=== PATIENT | male | born 1960 | race Caucasian/White ===

== ENCOUNTER 2022-02-15 12:03 | Inpatient (IN) | payer OTHER ==
[~2022-02-15] VITALS: Ht 187.9 cm; Wt 100.4 kg
[~2022-02-15 12:03] MED LIST: ALPR.5T PO; ALPR1T PO; CEPH-38 PO; FLAGYL; METR375C PO; OXYC-12 PO; ZLP10T PO; [UNRECOGNIZED DRUG - CODE] IV; [UNRECOGNIZED DRUG - CODE] IV
[2022-02-15] MEDS ORDERED: fentaNYL INJ 100 MCG/2 ML AMP IVP PRN (13:15)
[2022-02-15 13:32] VITALS: BP 123/77
[2022-02-15] MEDS: LACTATED RINGERS 1,000 ML IV SCH ×2 (14:02→21:36)
[2022-02-15 15:26] VITALS: BP 119/78
[2022-02-15] MEDS: ONDANSETRON 4 MG/2 ML (SDV) Z0FRAN IVP PRN ×2 (15:30→21:39)
[2022-02-15] MEDS ORDERED: LIDOCAINE/EPI 1%-1:100,000 (XYLOCAINE) 10 ML ONE (16:54)
[2022-02-15] MEDS ORDERED: LORazepam INJ 2 MG/ML (ATIVAN) VIAL ONE (16:55)
[2022-02-15] MEDS ORDERED: LIDOCAINE/EPI 1%-1:100,000 (XYLOCAINE) 20ML INJ ONE (17:00)
[2022-02-15] MEDS ORDERED: fentaNYL INJ 100 MCG/2 ML AMP IVP ONE (17:00)
[2022-02-15] MEDS ORDERED: LORazepam INJ 2 MG/ML (ATIVAN) VIAL IVP ONE (17:00)
[2022-02-15 17:15] VITALS: BP 134/90
[2022-02-15] MEDS ORDERED: LORazepam INJ 2 MG/ML (ATIVAN) VIAL IVP PRN (17:45)
[2022-02-15] MEDS ORDERED: ACETAMINOPHEN 325 MG TABLET PO PRN (18:00)
[2022-02-15] MEDS: fentaNYL INJ 100 MCG/2 ML AMP IVP PRN ×3 (18:13→23:27)
--- NOTE | 2022-02-15 18:23 | HISTORY AND PHYSICAL ---
DATE OF SERVICE: ATTENDING PRIMARY CARE PHYSICIAN: Dr. Richa Delcid. HISTORY OF PRESENT ILLNESS: The patient is a 61-year-old male who presented to [facility] Emergency Department on 02/11/2022 for abdominal pain as well as nausea and vomiting. He had a CT scan performed, which did show gallbladder wall thickening as well as multiple gallstones consistent with acute calculous cholecystitis. On 02/12/2022, he underwent a laparoscopic cholecystectomy. There was a significant amount of inflammation identified as well as a mesenteric and omental fat creeping along the area of the gallbladder and hepatic fossa. He was kept overnight and the following day, he was able to tolerate liquids, have adequate pain control with oral pain medication and was ambulating well and was discharged home. He presented today with mild abdominal distention as well as a more superficial abdominal pain in the mid abdominal region. He states that his end ileostomy is working well and was otherwise tolerating a regular diet. He also did not report any fever nor chills at home. He underwent workup at [facility]. A CT scan was performed, which did show some fluid within the hepatic fossa as well as gallbladder fossa 5.1 x 2.3 cm in size. There was also some subcutaneous air along the abdominal wall just right of midline along the mid portion of the abdomen. It was decided to transfer the patient to [facility] by direct admission due to the need for a HIDA scan. PAST MEDICAL HISTORY: History of Crohn's disease, gastroesophageal reflux disease. PAST SURGICAL HISTORY: Total colectomy and end ileostomy 2013 in [place]. Laparoscopic cholecystectomy 02/12/2022. ALLERGIES: PENICILLIN CAUSES SOME NAUSEA. MEDICATIONS: Protonix 40 mg daily, dicyclomine 20 mg q.i.d. p.r.n., amitriptyline 25 mg daily, hydrocodone p.r.n., alprazolam 0.25 mg t.i.d. p.r.n., acetaminophen 325 mg q.4 hours p.r.n. VITAL SIGNS: Temperature 37.1, blood pressure 134/90, pulse 104, respirations 20, pulse ox 95% on room air. REVIEW OF SYSTEMS: A well-nourished male currently in no acute distress. He is not experiencing any shortness of breath or difficulty breathing. No chest pain, palpitations, diaphoresis. He states some mild abdominal distention; however, there was also developed pain along the anterior abdominal wall as well as noticed redness. He reports that his ileostomy is functioning regularly. He is also tolerating a diet. No fever or chills, no recent inadvertent weight loss. All other review of systems negative. PHYSICAL EXAMINATION: CHEST: Clear. Good breath sounds bilaterally. HEART: Regular, no murmurs. EXTREMITIES: No lower extremity edema, negative Homans sign. HEENT: No scleral icterus. NECK: No cervical lymphadenopathy. ABDOMEN: Soft, slightly distended. There is redness in the mid abdominal region, which is encompassing the 10 mm supraumbilical port with some redness and erythema and some fluctuance consistent with an abscess. SKIN: Warm, dry. ASSESSMENT AND PLAN: A 61-year-old male with abdominal wall abscess, which we will proceed with incision and drainage at the bedside and send the drainage for culture and sensitivity to tailor our antibiotic regimen. He also has fluid in the peritoneal cavity as well as darker coloration of his urine, which may indicate a bile leak at the cystic duct stump. He is scheduled for a HIDA scan tomorrow and if the leak is identified, we will then refer him to gastroenterology for an ERCP as well as stent placement. We will also start and continue with a broad-spectrum antibiotic with Zosyn 4.5 grams every 8 hours. We will also proceed with adequate pain control and DVT prophylaxis with calf SCDs and early ambulation. Job ID: [id number] DocumentID: [id number] Dictated Date: 02/15/2022 17:57:18 Plate Setter Date: 02/15/2022 18:23:13 Dictated By: DEONNA CHERY MD
[2022-02-15 19:24] VITALS: BP 129/71
[2022-02-15] MEDS ORDERED: fentaNYL INJ 100 MCG/2 ML AMP ONE (19:40)
--- NOTE | 2022-02-15 20:11 | OPERATIVE REPORT ---
DATE OF SERVICE: 02/15/2022 ATTENDING PRIMARY CARE PHYSICIAN: Dr. Richa Delcid. PREOPERATIVE DIAGNOSIS: Abdominal wall redness, erythema and abscess. POSTOPERATIVE DIAGNOSIS: Abdominal wall redness, erythema and abscess. PROCEDURE: Incision and drainage of abdominal wall abscess, which was approximately 6 x 3 cm in size. SURGEON: Deonna Chery MD ANESTHESIA: Local. ESTIMATED BLOOD LOSS: Minimal. DISPOSITION: The patient tolerated the procedure well. INDICATIONS: The patient is a 61-year-old male who had an acute cholecystitis and was admitted to [facility] on 02/11/2002. Following day, he underwent a laparoscopic cholecystectomy. After the following morning, he was doing well and had adequate pain control, was tolerating a regular diet and was sent home. He presented to [facility] today with abdominal wall pain as well as redness and swelling. He also noticed darkening of his urine. The patient was transferred to [facility] for the need for a HIDA scan. Also upon examination, he was found to have a mid abdominal redness, erythema as well as fluctuance consistent with an abscess. DESCRIPTION OF PROCEDURE: The abdomen was prepped and draped in standard surgical fashion. A 1% lidocaine with epinephrine was used to anesthetize the overlying skin to the abscess. A horizontal skin incision was then made using a 10-blade. Subcutaneous tissue was then dissected using the 10- blade as well. There was some necrotic subcutaneous fat, which was debrided using a sharp dissecting scissors. The wound cavity was then copiously irrigated with sterile saline and then packed wet to dry. The patient tolerated the procedure well. We will instruct wet to dry dressings on a b.i.d. basis. The fluid was also sent for culture and sensitivity to fine tune our antibiotic regimen. However, we will proceed with a broad-spectrum antibiotic with Zosyn 4.5 grams every 8 hours. We will also await his HIDA scan tomorrow. Job ID: [id number] DocumentID: [id number] Dictated Date: 02/15/2022 18:02:22 Electronics Computer Mechanic Date: 02/15/2022 20:10:39 Dictated By: DEONNA CHERY MD
[2022-02-15 20:52] LABS: BASOPHILS # (AUTO) 0.1 10^3/uL (0.0-0.1); BASOPHILS % (AUTO) 0 % (0-10); EOSINOPHILS # (AUTO) 0.3 10^3/uL (0.0-0.3); EOSINOPHILS % (AUTO) 2 % (0-10); HEMATOCRIT 39 % (40-54); HEMOGLOBIN 13.6 g/dL (13.3-17.7); LYMPHOCYTES # (AUTO) 1.1 10^3/uL (1.0-4.0); LYMPHOCYTES % (AUTO) 10 % (12-44); MEAN CORPUSCULAR HEMOGLOBIN 31 pg (25-34); MEAN CORPUSCULAR HGB CONC 35 g/dL (32-36); MEAN CORPUSCULAR VOLUME 90 fL (80-99); MEAN PLATELET VOLUME 10.7 fL (9.0-12.2); MONOCYTES # (AUTO) 0.9 10^3/uL (0.0-1.0); MONOCYTES % (AUTO) 8 % (0-12); NEUTROPHILS # (AUTO) 9.3 10^3/uL (1.8-7.8); NEUTROPHILS % (AUTO) 79 % (42-75); PLATELET COUNT 214 10^3/uL (130-400); WHITE BLOOD COUNT 11.8 10^3/uL (4.3-11.0)
[2022-02-15] MEDS ORDERED: PIPERACILLIN SODIUM/TAZOBACTAM 4.5 GM in NS (IVPB) 100 ML IV ONE (21:30)
[2022-02-16 00:24] VITALS: BP 119/80
[2022-02-16] MEDS: PIPERACILLIN SODIUM/TAZOBACTAM 4.5 GM in NS (IVPB) 100 ML IV SCH ×3 (03:28→17:40)
[2022-02-16 04:15] VITALS: BP 144/80
[2022-02-16] MEDS: fentaNYL INJ 100 MCG/2 ML AMP IVP PRN ×8 (05:20→23:09)
[2022-02-16 05:42] LABS: BASOPHILS # (AUTO) 0.1 10^3/uL (0.0-0.1); BASOPHILS % (AUTO) 1 % (0-10); EOSINOPHILS # (AUTO) 0.4 10^3/uL (0.0-0.3); EOSINOPHILS % (AUTO) 3 % (0-10); HEMATOCRIT 43 % (40-54); HEMOGLOBIN 15.1 g/dL (13.3-17.7); LYMPHOCYTES # (AUTO) 1.1 10^3/uL (1.0-4.0); LYMPHOCYTES % (AUTO) 8 % (12-44); MEAN CORPUSCULAR HEMOGLOBIN 32 pg (25-34); MEAN CORPUSCULAR HGB CONC 35 g/dL (32-36); MEAN CORPUSCULAR VOLUME 90 fL (80-99); MEAN PLATELET VOLUME 10.6 fL (9.0-12.2); MONOCYTES % (AUTO) 8 % (0-12); NEUTROPHILS # (AUTO) 10.2 10^3/uL (1.8-7.8); NEUTROPHILS % (AUTO) 79 % (42-75); PLATELET COUNT 240 10^3/uL (130-400); WHITE BLOOD COUNT 12.8 10^3/uL (4.3-11.0)
[2022-02-16] MEDS: LACTATED RINGERS 1,000 ML IV SCH ×3 (05:54→22:07)
[2022-02-16 05:58] LABS: ALBUMIN 3.1 GM/DL (3.2-4.5); POTASSIUM 3.8 MMOL/L (3.6-5.0)
[2022-02-16 06:00] LABS: TOTAL PROTEIN 6.2 GM/DL (6.4-8.2)
[2022-02-16 06:04] LABS: CREATININE SERUM 0.79 MG/DL (0.60-1.30)
--- NOTE | 2022-02-16 06:16 | Consultation ---
HPI History of Present Illness: HPI/Chief Complaint CC: Abdominal pain HPI: This is a 61 yr WM who was admitted to [facility] on 02/11/22. Pt underwent a cholecystectomy. He was doing well. Suffered abdominal pain again. He was found to have an abdominal wall abscess. He was admitted and placed on Zosyn antibiotics. HIDA scan showed no biliary leak but Dr. Chery will assess. He does see a colorectal surgeon and web development consultant. Source: patient, family Exam Limitations: no limitations Date Seen 02/16/22 Attending Physician Richa Delcid MD PCP Admitting Physician: Purvi Chery MD Attending Physician: Purvi Chery MD Referring Physician Date of Admission February 15, 2022 at 13:05 Home Medications & Allergies Home Medications Reviewed patient Home Medication Reconciliation performed by pharmacy medication reconciliations planetarium technician and/or nursing. Patients Allergies have been reviewed. Allergies Allergies Coded Allergies No Known Drug Allergies (Unverified02/15/22) Past Ghsgvlc-Cbjrdt-Pxoloo Hx Past Med/Social Hx: Reviewed Nursing Past Med/Soc Hx, Reviewed and Corrections made Patient Social History Marrital Status: Employed/Student: employed Alcohol Use: Denies Use Smoking Status: Never a Smoker Past Medical History Surgeries: Abdominal Gastrointestinal: Diverticulosis Review of Systems Constitutional: see HPI, malaise, weakness EENTM: no symptoms reported Respiratory: no symptoms reported Cardiovascular: no symptoms reported Gastrointestinal: abdominal pain, loss of appetite, nausea, vomiting Genitourinary: no symptoms reported Musculoskeletal: no symptoms reported Skin: no symptoms reported Psychiatric/Neurological: No Symptoms Reported All Other Systems Reviewed Negative Unless Noted: Yes Physical Exam Physical Exam Vital Signs Vital Signs - First Documented 02/15/22 13:32 Temp 36.9 Pulse 94 Resp 18 B/P (MAP) 123/77 (92) Pulse Ox 95 O2 Delivery Room Air Capillary Refill : Height, Weight, BMI Height: '" Weight: lbs. oz. kg; 28.04 BMI Method:Stated General Appearance: No Apparent Distress, WD/WN Eyes: Bilateral Eye Normal Inspection, Bilateral Eye PERRL HEENT: PERRL/EOMI, Normal ENT Inspection, Pharynx Normal Neck: Full Range of Motion, Normal Inspection, Non Tender, Supple, Carotid Bruit Respiratory: Chest Non Tender, Lungs Clear, Normal Breath Sounds, No Accessory Muscle Use, No Respiratory Distress Cardiovascular: Regular Rate, Rhythm, No Edema, No Gallop, No JVD, No Murmur, Normal Peripheral Pulses Gastrointestinal: No Organomegaly, No Pulsatile Mass, Abnormal Bowel Sounds, Distended, Tenderness Back: Normal Inspection, No CVA Tenderness, No Vertebral Tenderness Extremity: Normal Capillary Refill, Normal Inspection, Normal Range of Motion, Non Tender, No Calf Tenderness, No Pedal Edema Neurologic/Psychiatric: Alert, Oriented x3, No Motor/Sensory Deficits, Normal Mood/Affect Skin: Normal Color, Warm/Dry Lymphatic: No Adenopathy Results Results/Procedures Labs Laboratory Tests 02/15/22 20:45 02/16/22 05:30 Patient resulted labs reviewed. Assessment/Plan Assessment and Plan Assess & Plan/Chief Complaint Assessment: Abdominal pain Postop ileus Cholecystectomy 02/11/2022 at [facility] by Dr. CHERY Abdominal wall abscess Crohn's disease Diverticulosis Plan: Broad-spectrum antibiotics HIDA scan Pain meds Supportive care Diagnosis/Problems Diagnosis/Problems (1) Abdominal pain PETRONA ALCOCER DO February 16, 2022 06:16
[2022-02-16] MEDS ORDERED: DICY20TA PO (08:44)
[2022-02-16] MEDS ORDERED: HYDR-3817 PO (08:44)
[2022-02-16] MEDS ORDERED: PANT40TA52 PO (08:44)
[2022-02-16] MEDS ORDERED: AMIT25TA9 PO (08:45)
[2022-02-16] MEDS ORDERED: ALPR0.254 PO (08:45)
[2022-02-16 08:47] VITALS: BP 141/79
[2022-02-16] MEDS ORDERED: IBUP-2473 PO (08:47)
[2022-02-16] MEDS ORDERED: PEDI300T11 PO (08:48)
[2022-02-16] MEDS ORDERED: PANTOPRAZOLE 40 MG (PROTONIX) VIAL IV SCH (09:00)
--- NOTE | 2022-02-16 09:01 | Diagnostic Imaging Report ---
Comparison: 01/25/2013 Reason for exam: Cholecystectomy on 02/12/2022. Abdominal pain. Fluid collection. Evaluate for leak. Procedure: The patient was administered 5.34 millicuries of technetium 99m mebrofenin. A nuclear medicine hepatobiliary scan was performed. Findings: There is prompt uptake and excretion of radiotracer by the liver. Activity is visible in the small bowel by 25 minutes. The gallbladder is surgically absent. No abnormal accumulation of radiotracer is seen to suggest bile leak. Impression: 1. No nuclear medicine evidence of bile leak or biloma. Recommend continued follow-up as indicated. Dictated by: Dictated on workstation # [id number]
[2022-02-16 12:40] VITALS: BP 116/71
[2022-02-16 16:00] VITALS: BP 133/82
[2022-02-16] MEDS: HYDROcodone/APAP 7.5 MG/325 MG (LORTAB, LORCET PLUS) TABLET PO PRN (18:50)
[2022-02-16 20:00] VITALS: BP 121/78
[2022-02-17] VITALS: BP 130/64
[2022-02-17] MEDS: HYDROcodone/APAP 7.5 MG/325 MG (LORTAB, LORCET PLUS) TABLET PO PRN ×4 (02:09→19:44)
[2022-02-17] MEDS: LACTATED RINGERS 1,000 ML IV SCH (02:10)
[2022-02-17] MEDS: PIPERACILLIN SODIUM/TAZOBACTAM 4.5 GM in NS (IVPB) 100 ML IV SCH ×3 (02:11→16:52)
[2022-02-17 04:00] VITALS: BP 130/87
[2022-02-17] MEDS: fentaNYL INJ 100 MCG/2 ML AMP IVP PRN ×4 (04:32→19:44)
[2022-02-17] MEDS ORDERED: IBUPROFEN TABLET 200 MG TAB PO PRN (05:45)
--- NOTE | 2022-02-17 06:33 | Progress Note ---
Subjective Date Seen by a Provider: Feb 17, 2022 Time Seen by a Provider: 10:00 Subjective/Events-last exam Pt is doing about the same Reporting that he is having stool come from the area that the gallbladder came out of laparoscopically I did update Dr. Chery Antibiotics maintained Review of Systems Gastrointestinal: Abdominal Pain Objective Exam Last Set of Vital Signs Vital Signs Date Time Temp Pulse Resp B/P (MAP) Pulse Ox O2 Delivery O2 Flow Rate FiO2 02/17/22 04:00 37.4 85 18 130/87 (101) 95 Room Air Capillary Refill : I&O Intake and Output 02/17/22 00:00 Intake Total 1690 ml Output Total 575 ml Balance 1115 ml Intake Oral 1590 ml IV Total 100 ml Output Urine Total 525 ml Stool Total 50 ml # Voids 4 General: Alert, Oriented X3, Cooperative, No Acute Distress Lungs: Clear to Auscultation, Normal Air Movement Heart: Regular Rate, Normal S1, Normal S2, No Murmurs Neuro: Normal Gait, Normal Speech, Strength at 5/5 X4 Ext, Normal Tone Results Lab Microbiology 02/15/22 Gram Stain, Resulted Pending 02/15/22 Wound Culture - Preliminary, Resulted YEAST Gram Positive Cocci Assessment/Plan Assessment/Plan Assess & Plan/Chief Complaint Assessment: Abdominal pain Postop ileus Cholecystectomy 02/11/2022 at [facility] by Dr. CHERY Abdominal wall abscess Crohn's disease Diverticulosis Fistula formation? Plan: Broad-spectrum antibiotics HIDA scan Pain meds Supportive care 02/17/22: Supportive care IV abx Monitor closely Diagnosis/Problems Diagnosis/Problems (1) Abdominal pain PETRONA ALCOCER DO Feb 17, 2022 06:33
[2022-02-17 07:41] VITALS: BP 121/76
[2022-02-17] MEDS: ALPRAZolam 0.25 MG (XANAX) TAB PO PRN (08:12)
[2022-02-17] MEDS: DICYCLOMINE 10 MG (BENTYL) CAP PO SCH ×3 (08:13→19:47)
[2022-02-17] MEDS: MULTIVIT W/MINERALS TAB (THERAGRAN M) PO SCH (08:13)
[2022-02-17] MEDS ORDERED: FLUCONAZOLE 200 MG/100 ML 100 ML IV NR (09:30)
[2022-02-17 11:06] VITALS: BP 118/75
--- NOTE | 2022-02-17 12:05 | Progress Note ---
Subjective Date Seen by a Provider: February 16, 2022 Time Seen by a Provider: 12:00 Subjective/Events-last exam this note reflects patient visit on 02/16. patient doing well. no f ever/chills. tolerating clears. mild drainage per open wound. Objective Exam Vital Signs Date Time Temp Pulse Resp B/P (MAP) Pulse Ox O2 Delivery O2 Flow Rate FiO2 02/17/22 11:06 36.3 87 18 118/75 (89) 97 Room Air 02/17/22 08:00 Room Air 02/17/22 07:41 36.4 83 18 121/76 (91) 96 Room Air 02/17/22 04:00 37.4 85 18 130/87 (101) 95 Room Air 02/17/22 00:00 37.1 81 18 130/64 (86) 96 Room Air 02/16/22 20:00 Room Air 02/16/22 20:00 37.0 86 20 121/78 (92) 94 Room Air 02/16/22 16:00 37.6 93 20 133/82 (99) 91 Room Air 02/16/22 12:40 37.3 94 18 116/71 (86) 91 Room Air I & O 02/17/22 07:00 Intake Total 3190 ml Output Total 200 ml Balance 2990 ml Capillary Refill : General Appearance: No Apparent Distress HEENT: PERRL/EOMI Neck: Full Range of Motion Respiratory: Chest Non Tender, Lungs Clear, Normal Breath Sounds Cardiovascular: Regular Rate, Rhythm Gastrointestinal: soft, tenderness, other (open wound dressed/dry) Extremity: Normal Capillary Refill Neurologic/Psychiatric: Alert, Oriented x3 Skin: Normal Color Lymphatic: No Adenopathy Results Lab Microbiology 02/15/22 Gram Stain - Final, Resulted 02/15/22 Wound Culture - Preliminary, Resulted YEAST Enterococcus gallinarum Assessment/Plan Assessment/Plan Assess & Plan/Chief Complaint s/p lap mary for acute calculous cholecystitis. HIDA normal with no bile leak. open wound with granulation tissue starting to grow. DEONNA CHERY MD Feb 17, 2022 12:05
[2022-02-17 15:33] VITALS: BP 151/81
--- NOTE | 2022-02-17 15:44 | Progress Note ---
Subjective Date Seen by a Provider: Feb 17, 2022 Time Seen by a Provider: 15:00 Subjective/Events-last exam doing well clinically. tolerating diet. having normal ostomy output. currently minimal wound output. no fever/chills. Objective Exam Vital Signs Date Time Temp Pulse Resp B/P (MAP) Pulse Ox O2 Delivery O2 Flow Rate FiO2 02/17/22 15:33 37.2 92 20 151/81 (104) 97 Room Air 02/17/22 11:06 36.3 87 18 118/75 (89) 97 Room Air 02/17/22 08:00 Room Air 02/17/22 07:41 36.4 83 18 121/76 (91) 96 Room Air 02/17/22 04:00 37.4 85 18 130/87 (101) 95 Room Air 02/17/22 00:00 37.1 81 18 130/64 (86) 96 Room Air 02/16/22 20:00 Room Air 02/16/22 20:00 37.0 86 20 121/78 (92) 94 Room Air 02/16/22 16:00 37.6 93 20 133/82 (99) 91 Room Air I & O 02/17/22 07:00 Intake Total 3190 ml Output Total 200 ml Balance 2990 ml Capillary Refill : General Appearance: No Apparent Distress HEENT: PERRL/EOMI Neck: Full Range of Motion Respiratory: Chest Non Tender, Lungs Clear, Normal Breath Sounds Cardiovascular: Regular Rate, Rhythm Gastrointestinal: normal bowel sounds, soft, tenderness, other (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 HIDA normal with no bile leak. 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 no surgery for now. will recommend low residue diet and continued abx and antifungals. if large fistula out put will place ostomy bag. will get CT abd/pelvis tomorrow with PO contrast. DEONNA CHERY MD Feb 17, 2022 15:44
[2022-02-17 16:19] LABS: BASOPHILS # (AUTO) 0.1 10^3/uL (0.0-0.1); BASOPHILS % (AUTO) 1 % (0-10); EOSINOPHILS # (AUTO) 0.3 10^3/uL (0.0-0.3); EOSINOPHILS % (AUTO) 3 % (0-10); HEMATOCRIT 41 % (40-54); HEMOGLOBIN 14.1 g/dL (13.3-17.7); LYMPHOCYTES # (AUTO) 1.6 10^3/uL (1.0-4.0); LYMPHOCYTES % (AUTO) 13 % (12-44); MEAN CORPUSCULAR HEMOGLOBIN 31 pg (25-34); MEAN CORPUSCULAR HGB CONC 34 g/dL (32-36); MEAN CORPUSCULAR VOLUME 90 fL (80-99); MEAN PLATELET VOLUME 9.9 fL (9.0-12.2); MONOCYTES # (AUTO) 1.1 10^3/uL (0.0-1.0); MONOCYTES % (AUTO) 10 % (0-12); NEUTROPHILS # (AUTO) 8.5 10^3/uL (1.8-7.8); NEUTROPHILS % (AUTO) 72 % (42-75); PLATELET COUNT 258 10^3/uL (130-400); WHITE BLOOD COUNT 11.9 10^3/uL (4.3-11.0)
[2022-02-17 16:31] LABS: ALBUMIN 3.2 GM/DL (3.2-4.5)
[2022-02-17 16:32] LABS: POTASSIUM 3.6 MMOL/L (3.6-5.0)
[2022-02-17 16:33] LABS: CALCIUM 8.8 MG/DL (8.5-10.1)
[2022-02-17 16:34] LABS: TOTAL PROTEIN 6.3 GM/DL (6.4-8.2)
[2022-02-17 16:36] LABS: BILIRUBIN,TOTAL 0.8 MG/DL (0.1-1.0)
[2022-02-17 16:38] LABS: CREATININE SERUM 0.72 MG/DL (0.60-1.30)
[2022-02-17] MEDS: PANTOPRAZOLE 40 MG (PROTONIX) TAB PO SCH (19:44)
[2022-02-17] MEDS: AMITRIPTYLINE 25 MG (ELAVIL) TAB PO SCH (19:47)
[2022-02-17 20:05] VITALS: BP 118/72
[2022-02-17] MEDS ORDERED: PANTOPRAZOLE 40 MG (PROTONIX) TAB PO SCH (21:00)
[2022-02-17] MEDS ORDERED: OCTREOTIDE (FOR SQ USE) 100 MCG/ML VIAL (SandoSTATIN) SC SCH (22:00)
[2022-02-18] VITALS (7 sets, daily range): BP systolic 128–140; BP diastolic 73–88
[2022-02-18] MEDS: PIPERACILLIN SODIUM/TAZOBACTAM 4.5 GM in NS (IVPB) 100 ML IV SCH ×3 (02:45→17:32)
[2022-02-18] MEDS: HYDROcodone/APAP 7.5 MG/325 MG (LORTAB, LORCET PLUS) TABLET PO PRN ×3 (03:46→22:24)
[2022-02-18] MEDS: MULTIVIT W/MINERALS TAB (THERAGRAN M) PO SCH (06:05)
[2022-02-18] MEDS: fentaNYL INJ 100 MCG/2 ML AMP IVP PRN ×5 (06:09→20:17)
--- NOTE | 2022-02-18 06:31 | Progress Note ---
Subjective Date Seen by a Provider: Feb 18, 2022 Time Seen by a Provider: 11:00 Subjective/Events-last exam Pt is doing about the same Fistula is draining everything that he is eating CT scan reviewed Having increased pain Very difficult situation No evidence of sepsis Wound care will be consulted Review of Systems General: Fatigue, Malaise Gastrointestinal: Abdominal Pain Objective Exam Last Set of Vital Signs Vital Signs Date Time Temp Pulse Resp B/P (MAP) Pulse Ox O2 Delivery O2 Flow Rate FiO2 02/18/22 03:42 38.7 94 18 132/80 (97) 93 Room Air Capillary Refill : I&O Intake and Output 02/18/22 00:00 Intake Total 3845 ml Output Total 675 ml Balance 3170 ml Intake Oral 1545 ml IV Total 2300 ml Output Urine Total 525 ml Stool Total 150 ml # Voids 3 General: Alert, Oriented X3, Cooperative, No Acute Distress Lungs: Clear to Auscultation, Normal Air Movement Heart: Regular Rate, Normal S1, Normal S2, No Murmurs Psych/Mental Status: Mental Status NL, Mood NL Results Lab Laboratory Tests 02/17/22 16:05: White Blood Count 11.9H, Red Blood Count 4.56, Hemoglobin 14.1, Hematocrit 41, Mean Corpuscular Volume 90, Mean Corpuscular Hemoglobin 31, Mean Corpuscular Hemoglobin Concent 34, Red Cell Distribution Width 13.2, Platelet Count 258, Mean Platelet Volume 9.9, Immature Granulocyte % (Auto) 2, Neutrophils (%) (Auto) 72, Lymphocytes (%) (Auto) 13, Monocytes (%) (Auto) 10, Eosinophils (%) (Auto) 3, Basophils (%) (Auto) 1, Neutrophils # (Auto) 8.5H, Lymphocytes # (Auto) 1.6, Monocytes # (Auto) 1.1H, Eosinophils # (Auto) 0.3, Basophils # (Auto) 0.1, Immature Granulocyte # (Auto) 0.3H, Sodium Level 138, Potassium Level 3.6, Chloride Level 102, Carbon Dioxide Level 21, Anion Gap 15H, Blood Urea Nitrogen 12, Creatinine 0.72, Estimat Glomerular Filtration Rate 105, BUN/Creatinine Ratio 17, Glucose Level 94, Calcium Level 8.8, Corrected Calcium 9.4, Total Bilirubin 0.8, Aspartate Amino Transf (AST/SGOT) 24, Alanine Aminotransferase (ALT/SGPT) 31, Alkaline Phosphatase 71, Total Protein 6.3L, Albumin 3.2 Microbiology 02/15/22 Gram Stain - Final, Resulted 02/15/22 Wound Culture - Preliminary, Resulted YEAST Enterococcus gallinarum Assessment/Plan Assessment/Plan Assess & Plan/Chief Complaint Assessment: Abdominal pain Postop ileus Cholecystectomy 02/11/2022 at [facility] by Dr. CHERY Abdominal wall abscess Crohn's disease Diverticulosis Fistula formation? Plan: Broad-spectrum antibiotics HIDA scan Pain meds Supportive care 02/17/22: Supportive care IV abx Monitor closely 02/18/2022: Supportive care Wound care consult Antibiotics Diagnosis/Problems Diagnosis/Problems (1) Abdominal pain PETRONA ALCOCER DO Feb 18, 2022 06:31
[2022-02-18 07:44] LABS: BASOPHILS # (AUTO) 0.1 10^3/uL (0.0-0.1); BASOPHILS % (AUTO) 0 % (0-10); EOSINOPHILS # (AUTO) 0.3 10^3/uL (0.0-0.3); EOSINOPHILS % (AUTO) 2 % (0-10); HEMATOCRIT 38 % (40-54); HEMOGLOBIN 13.2 g/dL (13.3-17.7); LYMPHOCYTES # (AUTO) 1.4 10^3/uL (1.0-4.0); LYMPHOCYTES % (AUTO) 11 % (12-44); MEAN CORPUSCULAR HEMOGLOBIN 31 pg (25-34); MEAN CORPUSCULAR HGB CONC 35 g/dL (32-36); MEAN CORPUSCULAR VOLUME 90 fL (80-99); MEAN PLATELET VOLUME 9.9 fL (9.0-12.2); MONOCYTES # (AUTO) 1.4 10^3/uL (0.0-1.0); MONOCYTES % (AUTO) 11 % (0-12); NEUTROPHILS # (AUTO) 9.6 10^3/uL (1.8-7.8); NEUTROPHILS % (AUTO) 74 % (42-75); PLATELET COUNT 268 10^3/uL (130-400); WHITE BLOOD COUNT 12.9 10^3/uL (4.3-11.0)
--- NOTE | 2022-02-18 07:48 | Physician Query Clarification ---
PQ-Link Infection to Dev/Proc Admission/Discharge Admission Date: Feb 17, 2022 at 13:41 Discharge Date: Dr. Chery, The medical record reflects the following clinical scenario: History/Risk Factors: s/p lap cholecystectomy 02/12 Clinical Findings: abdominal wall abscess Treatment: I&D abdominal wall abscess 02/15 Question: Can you specify if the abdominal wall abscess is due to/associated with lap cholecystectomy? Please document a response in Progress Note or Discharge Summary. 1. Yes - abdominal wall abscess is due to/associated with lap cholecystectomy. 2. No - abdominal wall abscess is due to/associated with lap cholecystectomy . 3. Other, with explanation of the clinical findings. 4. Clinically undetermined, no explanation for the clinical findings. PHYSICIAN RESPONSE Specify if infection: Other, explain clinical findings Explanation of clincal finding due to crohns disease and small bowel enterocutaneous fistula formation. In responding to this query, please exercise your independent professional judgment. The purpose of this communication is to more accurately reflect the complexity of your patients condition. The fact that a question is asked does not imply that any particular answer is desired or expected. Thank you for your timely response to this clarification. Requestors name: Olivia THIS PHYSICIAN QUERY FORM IS A PERMANENT PART OF THE MEDICAL RECORD OLIVIA DENNY Feb 18, 2022 07:48 DEONNA CHERY MD Feb 18, 2022 11:13
[2022-02-18 07:53] LABS: ALBUMIN 3.1 GM/DL (3.2-4.5)
[2022-02-18 07:54] LABS: POTASSIUM 3.6 MMOL/L (3.6-5.0)
[2022-02-18 07:55] LABS: CALCIUM 8.8 MG/DL (8.5-10.1)
[2022-02-18 07:58] LABS: BILIRUBIN,TOTAL 0.9 MG/DL (0.1-1.0)
[2022-02-18 08:00] LABS: CREATININE SERUM 0.75 MG/DL (0.60-1.30)
[2022-02-18] MEDS: OCTREOTIDE (FOR SQ USE) 100 MCG/ML VIAL (SandoSTATIN) SC SCH ×4 (08:39→23:14)
[2022-02-18] MEDS: FLUCONAZOLE 100 MG/50 ML IVPB IV SCH (08:42)
--- NOTE | 2022-02-18 10:00 | Diagnostic Imaging Report ---
PROCEDURE: CT abdomen and pelvis without contrast. TECHNIQUE: Multiple contiguous axial images were obtained through the abdomen and pelvis without the use of intravenous contrast. Auto Exposure Controls were utilized during the CT exam to meet ALARA standards for radiation dose reduction. INDICATION: Possible small bowel fistula. Correlation is made with prior CT from 01/25/2013. FINDINGS: Lung bases demonstrate areas of bibasilar consolidation with air bronchograms suggestive of pneumonia. There is some minimal atelectasis or pneumonia in the lingula as well. Patient reportedly has had a recent cholecystectomy. There is some trace free air present likely from recent surgery. There are surgical clips in the gallbladder fossa. Minimal fluid in the gallbladder fossa is seen consistent with a small postoperative hematoma. No biliary ductal dilatation is seen. Patient does have oral contrast within the stomach and small bowel loops. There is a midline incision. There is a small gas and contrast collection in the anterior midline abdomen which does not appear to conform to a bowel loop. This is an probe close proximity to a small bowel loop slightly more inferiorly in the right paramidline. The collection measures 6.7 cm cephalocaudal by approximately 3.0 cm AP by 6.8 cm transverse. The collection is just deep to the anterior abdominal wall. Small amount of free fluid is present. There is a right lower quadrant ostomy. Some subcutaneous gas in the anterior abdominal wall as well. The liver, pancreas, spleen, adrenal glands and kidneys are unremarkable. Bladder is unremarkable. IMPRESSION: 1. Bilateral lower lobe parenchymal consolidation with air bronchogram suggestive of pneumonia. 2. Postoperative changes in the abdomen. There appears to be an abnormal gas and contrast collection in the anterior midline abdomen just deep to the anterior abdominal wall, likely arising from adjacent small bowel loop. No other abnormal collections are seen. There is pneumoperitoneum, presumably postoperative. Results were discussed with Dr. Harry prior to this dictation. Dictated by: Dictated on workstation # [id number]
[2022-02-18] MEDS: DICYCLOMINE 10 MG (BENTYL) CAP PO SCH ×3 (10:26→20:17)
[2022-02-18] MEDS: PANTOPRAZOLE 40 MG (PROTONIX) TAB PO SCH ×2 (10:38→20:16)
--- NOTE | 2022-02-18 14:22 | Progress Note ---
Subjective Date Seen by a Provider: Feb 18, 2022 Time Seen by a Provider: 14:00 Subjective/Events-last exam doing ok. 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 no intraabd abscess. likely has some level of active crohn's Objective Exam Vital Signs Date Time Temp Pulse Resp B/P (MAP) Pulse Ox O2 Delivery O2 Flow Rate FiO2 02/18/22 12:18 Room Air 0.00 02/18/22 11:34 37.1 83 17 130/81 (97) 95 Room Air 02/18/22 08:00 95 Room Air 02/18/22 07:36 36.6 81 18 128/81 (97) 95 Room Air 02/18/22 03:42 38.7 94 18 132/80 (97) 93 Room Air 02/18/22 00:55 37.1 98 18 134/84 (101) 94 Room Air 02/17/22 20:55 37.5 02/17/22 20:55 37.5 02/17/22 20:05 Room Air 02/17/22 20:05 37.5 86 19 118/72 (87) 94 Room Air 02/17/22 15:33 37.2 92 20 151/81 (104) 97 Room Air I & O 02/18/22 07:00 Intake Total 2695 ml Output Total 1300 ml Balance 1395 ml Capillary Refill : General Appearance: No Apparent Distress HEENT: PERRL/EOMI Neck: Full Range of Motion Respiratory: Chest Non Tender, Lungs Clear, Normal Breath Sounds Cardiovascular: Regular Rate, Rhythm Gastrointestinal: normal bowel sounds, soft, other (EC fistula, good granulation bed, no purulence.) Extremity: Normal Capillary Refill Neurologic/Psychiatric: Alert, Oriented x3 Skin: Normal Color Lymphatic: No Adenopathy Results Lab Laboratory Tests 02/17/22 16:05: White Blood Count 11.9H, Red Blood Count 4.56, Hemoglobin 14.1, Hematocrit 41, Mean Corpuscular Volume 90, Mean Corpuscular Hemoglobin 31, Mean Corpuscular Hemoglobin Concent 34, Red Cell Distribution Width 13.2, Platelet Count 258, Mean Platelet Volume 9.9, Immature Granulocyte % (Auto) 2, Neutrophils (%) (Auto) 72, Lymphocytes (%) (Auto) 13, Monocytes (%) (Auto) 10, Eosinophils (%) (Auto) 3, Basophils (%) (Auto) 1, Neutrophils # (Auto) 8.5H, Lymphocytes # (Auto) 1.6, Monocytes # (Auto) 1.1H, Eosinophils # (Auto) 0.3, Basophils # (Auto) 0.1, Immature Granulocyte # (Auto) 0.3H, Sodium Level 138, Potassium Level 3.6, Chloride Level 102, Carbon Dioxide Level 21, Anion Gap 15H, Blood Urea Nitrogen 12, Creatinine 0.72, Estimat Glomerular Filtration Rate 105, BUN/Creatinine Ratio 17, Glucose Level 94, Calcium Level 8.8, Corrected Calcium 9.4, Total Bilirubin 0.8, Aspartate Amino Transf (AST/SGOT) 24, Alanine Aminotransferase (ALT/SGPT) 31, Alkaline Phosphatase 71, Total Protein 6.3L, Albumin 3.2 02/18/22 07:36: White Blood Count 12.9H, Red Blood Count 4.23L, Hemoglobin 13.2L, Hematocrit 38L , Mean Corpuscular Volume 90, Mean Corpuscular Hemoglobin 31, Mean Corpuscular Hemoglobin Concent 35, Red Cell Distribution Width 13.2, Platelet Count 268, Mean Platelet Volume 9.9, Immature Granulocyte % (Auto) 2, Neutrophils (%) (Aut o) 74, Lymphocytes (%) (Auto) 11L, Monocytes (%) (Auto) 11, Eosinophils (%) (Auto) 2, Basophils (%) (Auto) 0, Neutrophils # (Auto) 9.6H, Lymphocytes # (Auto) 1.4, Monocytes # (Auto) 1.4H, Eosinophils # (Auto) 0.3, Basophils # (Auto) 0.1, Immature Granulocyte # (Auto) 0.3H, Sodium Level 138, Potassium Level 3.6, Chloride Level 102, Carbon Dioxide Level 22, Anion Gap 14, Blood Urea Nitrogen 8, Creatinine 0.75, Estimat Glomerular Filtration Rate 104, BUN/Creatinine Ratio 11, Glucose Level 104, Calcium Level 8.8, Corrected Calcium 9.5, Total Bilirubin 0.9, Aspartate Amino Transf (AST/SGOT) 19, Alanine Aminotransferase (ALT/SGPT) 26, Alkaline Phosphatase 76, Total Protein 6.0L, Albumin 3.1L Microbiology 02/15/22 Gram Stain - Final, Complete 02/15/22 Wound Culture - Final, Complete YEAST Enterococcus gallinarum Assessment/Plan Assessment/Plan Assess & Plan/Chief Complaint s/p lap mary for acute calculous cholecystitis. HIDA normal with no bile leak. 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 no surgery for now. will recommend low residue diet and continued abx and antifungals. if large fistula out put will place ostomy bag. 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 cont abx, start octreotide, low residue diet. DEONNA CHERY MD Feb 18, 2022 14:22
[2022-02-18] MEDS: AMITRIPTYLINE 25 MG (ELAVIL) TAB PO SCH (20:16)
[2022-02-18] MEDS: ENOXAPARIN 40 MG/0.4 ML (LOVENOX) SYR SC SCH (22:24)
[2022-02-19] MEDS: PIPERACILLIN SODIUM/TAZOBACTAM 4.5 GM in NS (IVPB) 100 ML IV SCH ×3 (01:50→18:05)
[2022-02-19 04:00] VITALS: BP 154/86
[2022-02-19] MEDS: fentaNYL INJ 100 MCG/2 ML AMP IVP PRN ×2 (04:26→09:08)
[2022-02-19 06:00] LABS: BASOPHILS # (AUTO) 0.1 10^3/uL (0.0-0.1); BASOPHILS % (AUTO) 0 % (0-10); EOSINOPHILS # (AUTO) 0.3 10^3/uL (0.0-0.3); EOSINOPHILS % (AUTO) 3 % (0-10); HEMATOCRIT 39 % (40-54); HEMOGLOBIN 13.5 g/dL (13.3-17.7); LYMPHOCYTES # (AUTO) 1.3 10^3/uL (1.0-4.0); LYMPHOCYTES % (AUTO) 11 % (12-44); MEAN CORPUSCULAR HEMOGLOBIN 31 pg (25-34); MEAN CORPUSCULAR HGB CONC 35 g/dL (32-36); MEAN CORPUSCULAR VOLUME 90 fL (80-99); MEAN PLATELET VOLUME 10.1 fL (9.0-12.2); MONOCYTES # (AUTO) 1.1 10^3/uL (0.0-1.0); MONOCYTES % (AUTO) 9 % (0-12); NEUTROPHILS # (AUTO) 8.6 10^3/uL (1.8-7.8); NEUTROPHILS % (AUTO) 74 % (42-75); PLATELET COUNT 309 10^3/uL (130-400); WHITE BLOOD COUNT 11.7 10^3/uL (4.3-11.0)
--- NOTE | 2022-02-19 06:13 | Progress Note ---
Subjective Date Seen by a Provider: Feb 19, 2022 Time Seen by a Provider: 11:00 Subjective/Events-last exam Pt is doing a lot better Ostomy bag over the fistula with gauze to keep it closed and that seems to be working well Pt will need close follow up while maintaining antibiotics Labs stable Review of Systems General: Fatigue, Malaise Gastrointestinal: Abdominal Pain Objective Exam Last Set of Vital Signs Vital Signs Date Time Temp Pulse Resp B/P (MAP) Pulse Ox O2 Delivery O2 Flow Rate FiO2 02/19/22 04:00 37.1 82 18 154/86 (108) 94 Room Air 02/18/22 12:18 0.00 Capillary Refill : I&O Intake and Output 02/19/22 00:00 Intake Total 1660 ml Output Total 1800 ml Balance -140 ml Intake Oral 1510 ml IV Total 150 ml Output Urine Total 1225 ml Stool Total 575 ml # Voids 4 General: Alert, Oriented X3, Cooperative, No Acute Distress Lungs: Clear to Auscultation, Normal Air Movement Heart: Regular Rate, Normal S1, Normal S2, No Murmurs Psych/Mental Status: Mental Status NL, Mood NL Results Lab Laboratory Tests 02/18/22 07:36: White Blood Count 12.9H, Red Blood Count 4.23L, Hemoglobin 13.2L, Hematocrit 38L , Mean Corpuscular Volume 90, Mean Corpuscular Hemoglobin 31, Mean Corpuscular Hemoglobin Concent 35, Red Cell Distribution Width 13.2, Platelet Count 268, Mean Platelet Volume 9.9, Immature Granulocyte % (Auto) 2, Neutrophils (%) (Auto) 74, Lymphocytes (%) (Auto) 11L, Monocytes (%) (Auto) 11, Eosinophils (%) (Auto) 2, Basophils (%) (Auto) 0, Neutrophils # (Auto) 9.6H, Lymphocytes # (Auto) 1.4, Monocytes # (Auto) 1.4H, Eosinophils # (Auto) 0.3, Basophils # (Auto) 0.1, Immature Granulocyte # (Auto) 0.3H, Sodium Level 138, Potassium Level 3.6, Chloride Level 102, Carbon Dioxide Level 22, Anion Gap 14, Blood Urea Nitrogen 8, Creatinine 0.75, Estimat Glomerular Filtration Rate 104, BUN/Creatinine Ratio 11, Glucose Level 104, Calcium Level 8.8, Corrected Calcium 9.5, Total Bilirubin 0.9, Aspartate Amino Transf (AST/SGOT) 19, Alanine Aminotransferase (ALT/SGPT) 26, Alkaline Phosphatase 76, Total Protein 6.0L, Albumin 3.1L 02/19/22 05:35: White Blood Count 11.7H, Red Blood Count 4.33, Hemoglobin 13.5, Hematocrit 39L, Mean Corpuscular Volume 90, Mean Corpuscular Hemoglobin 31, Mean Corpuscular Hemoglobin Concent 35, Red Cell Distribution Width 12.9, Platelet Count 309, Mean Platelet Volume 10.1, Immature Granulocyte % (Auto) 3, Neutrophils (%) (Auto) 74, Lymphocytes (%) (Auto) 11L, Monocytes (%) (Auto) 9, Eosinophils (%) (Auto) 3, Basophils (%) (Auto) 0, Neutrophils # (Auto) 8.6H, Lymphocytes # (Auto) 1.3, Monocytes # (Auto) 1.1H, Eosinophils # (Auto) 0.3, Basophils # (Auto) 0.1, Immature Granulocyte # (Auto) 0.3H Microbiology 02/15/22 Gram Stain - Final, Complete 02/15/22 Wound Culture - Final, Complete YEAST Enterococcus gallinarum Assessment/Plan Assessment/Plan Assess & Plan/Chief Complaint Assessment: Abdominal pain Postop ileus Cholecystectomy 02/11/[address] [facility] by Dr. CHERY Abdominal wall abscess Crohn's disease Diverticulosis Fistula formation? Plan: Broad-spectrum antibiotics HIDA scan Pain meds Supportive care 02/17/22: Supportive care IV abx Monitor closely 02/18/2022: Supportive care Wound care consult Antibiotics 02/19/22: Fistula management Diagnosis/Problems Diagnosis/Problems (1) Abdominal pain PETRONA ALCOCER DO Feb 19, 2022 06:13
[2022-02-19 06:21] LABS: CALCIUM 8.5 MG/DL (8.5-10.1)
[2022-02-19] MEDS: MULTIVIT W/MINERALS TAB (THERAGRAN M) PO SCH (06:24)
[2022-02-19 06:25] LABS: CREATININE SERUM 0.7 MG/DL (0.60-1.30)
[2022-02-19 07:52] VITALS: BP 130/78
--- NOTE | 2022-02-19 08:35 | Wound Care Assessment ---
Wound Care Assessment Date Seen by Provider: Feb 18, 2022 Time Seen by Provider: 15:30 Chief Complaint Enterocutaneous fistula HPI This 61 year old male was admitted to [facility] following recent lap. mary and subsequent abdominal abscess with small bowel enterocutaneous fistula. I did discuss his case with Dr. Harry. He has an extensive h/o Crohn's disease requiring total colectomy with colostomy in past. He has not regularly been followed by GI for maintance care of his Crohn's. I&D of cutaneous abscess revealed underlying small bowel fistula. He is taking po at this time. When I evaluated him this afternoon he was noted to have erythema in the periwound related to moisture injury and copious amount of small bowel output from fistula. He notes that with any increase in abdominal pressure (positional change, coughing, post prandial state...) he has significant output. This is evidenced by a continuous need for repeated changes of saturated dressings (nurse confirms). The underlying question is whether this fistula will heal without surgical intervention. This is very difficult to say without confirmation of acute Crohn's flare. Repeated surgical intervention may very w ell result in another fistula but there is no guarantee this will heal with conservative management (zhanna. if active flare present) either. It is a very difficult case and primarily a case for the surgical and primary teams. I did recommend to patient that it is important to protect the periwound skin which is at risk for infection and skin breakdown due to copious leaking from fistula. Patient verbalized understanding but declined the wound care team's suggestions on how to manage this (ostomy powder, barrier ointment and ostomy bag). He seems to have a large hang up on the idea of having 2 bags. (I did attmept to reassure him that this is currently a temporary recommendation while assessing healing potential of this serious wound). He reports that he would like to continue packing with frequent dressing changes for now. Crohn's disease, PEM Smoking Status: Never a Smoker Alcohol Use: Denies Use Exam Vital Signs Date Time Temp Pulse Resp B/P (MAP) Pulse Ox O2 Delivery O2 Flow Rate FiO2 02/19/22 07:52 36.7 74 18 130/78 (95) 92 Room Air 02/18/22 12:18 0.00 Capillary Refill : General Appearance: WD/WN, no apparent distress Cardiovascular: no edema Respiratory: no respiratory distress, no accessory muscle use Gastrointestinal: distended, other (enterocutaneous fistula) Extremities: normal range of motion, non-tender, normal inspection, no pedal edema Skin: normal color, warm/dry, other (enterocutaneous fistula) Skin Character: other (enterocutaneous fistula) Wound assessment: Surgical incision with copious amounts of small bowel output. Wound not fully assessed due to nature of drainage. Periwound with erythema and no maceration Results Laboratory Tests 02/19/22 05:35: White Blood Count 11.7H, Red Blood Count 4.33, Hemoglobin 13.5, Hematocrit 39L, Mean Corpuscular Volume 90, Mean Corpuscular Hemoglobin 31, Mean Corpuscular Hemoglobin Concent 35, Red Cell Distribution Width 12.9, Platelet Count 309, Mean Platelet Volume 10.1, Immature Granulocyte % (Auto) 3, Neutrophils (%) (Auto) 74, Lymphocytes (%) (Auto) 11L, Monocytes (%) (Auto) 9, Eosinophils (%) (Auto) 3, Basophils (%) (Auto) 0, Neutrophils # (Auto) 8.6H, Lymphocytes # (Auto) 1.3, Monocytes # (Auto) 1.1H, Eosinophils # (Auto) 0.3, Basophils # (Auto) 0.1, Immature Granulocyte # (Auto) 0.3H, Sodium Level 137, Potassium Level 4.0, Chloride Level 101, Carbon Dioxide Level 22, Anion Gap 14, Blood Urea Nitrogen 8, Creatinine 0.70, Estimat Glomerular Filtration Rate 106, BUN/Creatinine Ratio 11, Glucose Level 125H, Calcium Level 8.5 Microbiology 02/15/22 Gram Stain - Final, Complete 02/15/22 Wound Culture - Final, Complete YEAST Enterococcus gallinarum Assessment/Plan/Dx Assessment: 1. Enterocutaneous fistula 2. Crohn's colitis s/p total colectomy and lap cholecystectomy 3. Wound culture with enterococcus and kasei 4. Mild PEM Plan: 1. Defer all definitive care to Dr. Harry and Primary team 2. My recs for wound management would be to protect periwound with stoma powder and barrier ointment as indicated and place ostomy bag (cut to size of incision). OK to pack surgical incision with Kerlix if patient so desires as well. 3. Patient did decline my recommendations. JOGRE L YU MD Feb 19, 2022 08:35
[2022-02-19] MEDS: DICYCLOMINE 10 MG (BENTYL) CAP PO SCH ×3 (09:01→20:21)
[2022-02-19] MEDS: PANTOPRAZOLE 40 MG (PROTONIX) TAB PO SCH ×2 (09:01→20:20)
[2022-02-19] MEDS: OCTREOTIDE (FOR SQ USE) 100 MCG/ML VIAL (SandoSTATIN) SC SCH ×2 (09:03→16:08)
[2022-02-19] MEDS: FLUCONAZOLE 100 MG/50 ML IVPB IV SCH (09:03)
[2022-02-19 11:34] VITALS: BP 129/72
[2022-02-19 15:24] VITALS: BP 124/77
--- NOTE | 2022-02-19 15:27 | Progress Note ---
Subjective Date Seen by a Provider: Feb 19, 2022 Time Seen by a Provider: 11:00 Subjective/Events-last exam doing ok. some redness/erythema around fistula site. mild drainage. functional end ileostomy. tolerating low residue diet. Objective Exam Vital Signs Date Time Temp Pulse Resp B/P (MAP) Pulse Ox O2 Delivery O2 Flow Rate FiO2 02/19/22 11:34 37.0 83 19 129/72 (91) 95 Room Air 02/19/22 08:00 92 Room Air 02/19/22 07:52 36.7 74 18 130/78 (95) 92 Room Air 02/19/22 04:00 37.1 82 18 154/86 (108) 94 Room Air 02/18/22 23:56 36.8 79 18 128/75 (92) 93 Room Air 02/18/22 20:20 Room Air 02/18/22 19:11 36.9 89 16 140/88 (105) 92 Room Air 02/18/22 16:09 36.7 88 18 128/73 (91) 97 Room Air I & O 02/19/22 07:00 Intake Total 1610 ml Output Total 1700 ml Balance -90 ml Capillary Refill : General Appearance: No Apparent Distress HEENT: PERRL/EOMI Neck: Full Range of Motion Respiratory: Chest Non Tender, Lungs Clear Cardiovascular: Regular Rate, Rhythm Gastrointestinal: normal bowel sounds, tenderness Extremity: Normal Capillary Refill Neurologic/Psychiatric: Alert, Oriented x3 Skin: Normal Color Lymphatic: No Adenopathy Results Lab Laboratory Tests 02/19/22 05:35: White Blood Count 11.7H, Red Blood Count 4.33, Hemoglobin 13.5, Hematocrit 39L, Mean Corpuscular Volume 90, Mean Corpuscular Hemoglobin 31, Mean Corpuscular Hemoglobin Concent 35, Red Cell Distribution Width 12.9, Platelet Count 309, Mean Platelet Volume 10.1, Immature Granulocyte % (Auto) 3, Neutrophils (%) (Auto) 74, Lymphocytes (%) (Auto) 11L, Monocytes (%) (Auto) 9, Eosinophils (%) (Auto) 3, Basophils (%) (Auto) 0, Neutrophils # (Auto) 8.6H, Lymphocytes # (Auto) 1.3, Monocytes # (Auto) 1.1H, Eosinophils # (Auto) 0.3, Basophils # (Auto) 0.1, Immature Granulocyte # (Auto) 0.3H, Sodium Level 137, Potassium Level 4.0, Chloride Level 101, Carbon Dioxide Level 22, Anion Gap 14, Blood Urea Nitrogen 8, Creatinine 0.70, Estimat Glomerular Filtration Rate 106, BUN/Creatinine Ratio 11, Glucose Level 125H, Calcium Level 8.5 Microbiology 02/15/22 Gram Stain - Final, Complete 02/15/22 Wound Culture - Final, Complete YEAST Enterococcus gallinarum Assessment/Plan Assessment/Plan Assess & Plan/Chief Complaint s/p lap mary for acute calculous cholecystitis. HIDA normal with no bile leak. 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 no surgery for now. will recommend low residue diet and continued abx and antifungals. if large fistula out put will place ostomy bag. 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 cont abx, start octreotide, low residue diet. active enteritis. will continue to treat EC fistula with IV abx over weekend. DEONNA CHERY MD Feb 19, 2022 15:27
[2022-02-19 19:31] VITALS: BP 125/76
[2022-02-19] MEDS: AMITRIPTYLINE 25 MG (ELAVIL) TAB PO SCH (20:20)
[2022-02-19] MEDS: ENOXAPARIN 40 MG/0.4 ML (LOVENOX) SYR SC SCH (20:22)
[2022-02-19 23:12] VITALS: BP 141/81
[2022-02-20] MEDS: OCTREOTIDE (FOR SQ USE) 100 MCG/ML VIAL (SandoSTATIN) SC SCH ×3 (00:28→17:51)
[2022-02-20] MEDS: PIPERACILLIN SODIUM/TAZOBACTAM 4.5 GM in NS (IVPB) 100 ML IV SCH ×3 (02:59→17:44)
[2022-02-20 04:18] VITALS: BP 134/72
[2022-02-20] MEDS: MULTIVIT W/MINERALS TAB (THERAGRAN M) PO SCH (05:32)
[2022-02-20] MEDS: fentaNYL INJ 100 MCG/2 ML AMP IVP PRN ×3 (05:35→17:46)
[2022-02-20 06:08] LABS: BASOPHILS # (AUTO) 0.1 10^3/uL (0.0-0.1); BASOPHILS % (AUTO) 0 % (0-10); EOSINOPHILS # (AUTO) 0.4 10^3/uL (0.0-0.3); EOSINOPHILS % (AUTO) 3 % (0-10); HEMATOCRIT 41 % (40-54); HEMOGLOBIN 14.3 g/dL (13.3-17.7); LYMPHOCYTES # (AUTO) 1.6 10^3/uL (1.0-4.0); LYMPHOCYTES % (AUTO) 13 % (12-44); MEAN CORPUSCULAR HEMOGLOBIN 31 pg (25-34); MEAN CORPUSCULAR HGB CONC 35 g/dL (32-36); MEAN CORPUSCULAR VOLUME 90 fL (80-99); MEAN PLATELET VOLUME 9.8 fL (9.0-12.2); MONOCYTES # (AUTO) 0.9 10^3/uL (0.0-1.0); MONOCYTES % (AUTO) 7 % (0-12); NEUTROPHILS # (AUTO) 9.3 10^3/uL (1.8-7.8); NEUTROPHILS % (AUTO) 74 % (42-75); PLATELET COUNT 383 10^3/uL (130-400); WHITE BLOOD COUNT 12.5 10^3/uL (4.3-11.0)
[2022-02-20 06:27] LABS: POTASSIUM 4.2 MMOL/L (3.6-5.0)
[2022-02-20 06:28] LABS: CALCIUM 8.7 MG/DL (8.5-10.1)
[2022-02-20 06:33] LABS: CREATININE SERUM 0.75 MG/DL (0.60-1.30)
[2022-02-20 07:52] VITALS: BP 138/79
[2022-02-20] MEDS: FLUCONAZOLE 100 MG/50 ML IVPB IV SCH (08:51)
[2022-02-20] MEDS: PANTOPRAZOLE 40 MG (PROTONIX) TAB PO SCH ×2 (08:52→20:19)
[2022-02-20] MEDS: DICYCLOMINE 10 MG (BENTYL) CAP PO SCH ×3 (08:52→20:20)
[2022-02-20] MEDS: ALPRAZolam 0.25 MG (XANAX) TAB PO PRN (10:59)
--- NOTE | 2022-02-20 11:06 | Progress Note - Hospitalist ---
Subjective HPI/CC On Admission Date Seen by Provider: Feb 20, 2022 Time Seen by Provider: 09:45 CC: Abdominal pain HPI: This is a 61 yr WM who was admitted to [facility] on 02/11/22. Pt underwent a cholecystectomy. He was doing well. Suffered abdominal pain again. He was found to have an abdominal wall abscess. He was admitted and placed on Zosyn antibiotics. HIDA scan showed no biliary leak but Dr. Harry will assess. He does see a colorectal surgeon and lifeguard. Subjective/Events-last exam Patient reports mild abdominal pain about the same. He is tolerating solids and is getting ready to take shower. He denies night sweats chills or fever. He has had no chest pain or shortness of breath. Objective Exam Vital Signs Vital Signs Date Time Temp Pulse Resp B/P (MAP) Pulse Ox O2 Delivery O2 Flow Rate FiO2 02/20/22 08:00 95 Room Air 02/20/22 07:52 36.6 73 18 138/79 (98) 02/18/22 12:18 0.00 Capillary Refill : General Appearance: No Apparent Distress Respiratory: Chest Non Tender, Lungs Clear, Normal Breath Sounds, No Accessory Muscle Use, No Respiratory Distress Cardiovascular: Regular Rate, Rhythm, No Edema, No Gallop, No JVD, No Murmur, Normal Peripheral Pulses Gastrointestinal: Other (Mild abdominal distention bowel sounds positive minimal nonpurulent fluid and fistula bag right lower quadrant ileostomy no idalmis thema induration or pain outside of the fistula her ostomy bag sites on the abdomen.) Results/Procedures Lab Laboratory Tests 02/20/22 05:48 Patient resulted labs reviewed. Assessment/Plan Assessment and Plan Assess & Plan/Chief Complaint A/P. Status post enterocutaneous fistula post laparoscopic cholecystectomy most likely due to active Crohn's disease. There is no evidence of recurrent sepsis patient is tolerating regular diet continuing broad-spectrum antibiotics in the form of Zosyn likely over the weekend discharge per Dr. Harry. No evidence for sepsis at this time. Patient in the process of getting set up to see gastroenterology with likely need for endoscopy and treatment for underlying Crohn's disease. AILEEN MCGINNIS MD Feb 20, 2022 11:06
[2022-02-20 11:49] VITALS: BP 128/77
--- NOTE | 2022-02-20 12:25 | Progress Note ---
Subjective Date Seen by a Provider: Feb 20, 2022 Time Seen by a Provider: 12:00 Subjective/Events-last exam doing well today. minimal fistula output. ambulating well. tolerating diet. abd pain controlled. Objective Exam Vital Signs Date Time Temp Pulse Resp B/P (MAP) Pulse Ox O2 Delivery O2 Flow Rate FiO2 02/20/22 11:49 36.1 74 18 128/77 (94) 94 Room Air 02/20/22 08:00 95 Room Air 02/20/22 07:52 36.6 73 18 138/79 (98) 96 Room Air 02/20/22 04:18 36.9 76 16 134/72 (92) 92 Room Air 02/19/22 23:12 36.7 82 18 141/81 (101) 94 Room Air 02/19/22 20:30 94 Room Air 02/19/22 19:31 36.5 90 18 125/76 (92) 94 Room Air 02/19/22 15:24 36.6 79 20 124/77 (93) 96 Room Air I & O 02/20/22 07:00 Intake Total 1320 ml Output Total 2275 ml Balance -955 ml Capillary Refill : General Appearance: No Apparent Distress HEENT: PERRL/EOMI Neck: Full Range of Motion Respiratory: Chest Non Tender, Normal Breath Sounds Cardiovascular: Regular Rate, Rhythm Gastrointestinal: normal bowel sounds, soft, tenderness, other (filstula opening granulating well. minimal redness/erythema) Extremity: Normal Capillary Refill Neurologic/Psychiatric: Alert, Oriented x3 Skin: Normal Color Lymphatic: No Adenopathy Results Lab Laboratory Tests 02/20/22 05:48: White Blood Count 12.5H, Red Blood Count 4.56, Hemoglobin 14.3, Hematocrit 41, Mean Corpuscular Volume 90, Mean Corpuscular Hemoglobin 31, Mean Corpuscular Hemoglobin Concent 35, Red Cell Distribution Width 13.0, Platelet Count 383, Mean Platelet Volume 9.8, Immature Granulocyte % (Auto) 2, Neutrophils (%) (Auto) 74, Lymphocytes (%) (Auto) 13, Monocytes (%) (Auto) 7, Eosinophils (%) (Auto) 3, Basophils (%) (Auto) 0, Neutrophils # (Auto) 9.3H, Lymphocytes # (A uto) 1.6, Monocytes # (Auto) 0.9, Eosinophils # (Auto) 0.4H, Basophils # (Auto) 0.1, Immature Granulocyte # (Auto) 0.2H, Sodium Level 138, Potassium Level 4.2, Chloride Level 103, Carbon Dioxide Level 23, Anion Gap 12, Blood Urea Nitrogen 7, Creatinine 0.75, Estimat Glomerular Filtration Rate 104, BUN/Creatinine Ratio 9, Glucose Level 129H, Calcium Level 8.7 Microbiology 02/15/22 Gram Stain - Final, Complete 02/15/22 Wound Culture - Final, Complete YEAST Enterococcus gallinarum Assessment/Plan Assessment/Plan Assess & Plan/Chief Complaint s/p lap mary for acute calculous cholecystitis. HIDA normal with no bile leak. 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 no surgery for now. will recommend low residue diet and continued abx and antifungals. if large fistula out put will place ostomy bag. 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 cont abx, start octreotide, low residue diet. active enteritis. will continue to treat EC fistula with IV abx over weekend. will need GI referral as soon as d/c from hospital. DEONNA CHERY MD Feb 20, 2022 12:25
[2022-02-20 15:42] VITALS: BP 122/76
[2022-02-20] MEDS: HYDROcodone/APAP 7.5 MG/325 MG (LORTAB, LORCET PLUS) TABLET PO PRN (18:52)
[2022-02-20 19:27] VITALS: BP 127/73
[2022-02-20] MEDS: AMITRIPTYLINE 25 MG (ELAVIL) TAB PO SCH (20:19)
[2022-02-20] MEDS: ENOXAPARIN 40 MG/0.4 ML (LOVENOX) SYR SC SCH (20:21)
[2022-02-21] VITALS: BP 123/78
[2022-02-21] MEDS: OCTREOTIDE (FOR SQ USE) 100 MCG/ML VIAL (SandoSTATIN) SC SCH ×3 (00:58→17:29)
[2022-02-21 04:00] VITALS: BP 130/80
[2022-02-21] MEDS: MULTIVIT W/MINERALS TAB (THERAGRAN M) PO SCH (06:01)
[2022-02-21 07:48] VITALS: BP 132/82
[2022-02-21 08:06] LABS: BASOPHILS # (AUTO) 0.1 10^3/uL (0.0-0.1); BASOPHILS % (AUTO) 1 % (0-10); EOSINOPHILS # (AUTO) 0.3 10^3/uL (0.0-0.3); EOSINOPHILS % (AUTO) 3 % (0-10); HEMATOCRIT 42 % (40-54); HEMOGLOBIN 14.5 g/dL (13.3-17.7); LYMPHOCYTES # (AUTO) 1.4 10^3/uL (1.0-4.0); LYMPHOCYTES % (AUTO) 12 % (12-44); MEAN CORPUSCULAR HEMOGLOBIN 31 pg (25-34); MEAN CORPUSCULAR HGB CONC 34 g/dL (32-36); MEAN CORPUSCULAR VOLUME 91 fL (80-99); MEAN PLATELET VOLUME 9.7 fL (9.0-12.2); MONOCYTES # (AUTO) 0.7 10^3/uL (0.0-1.0); MONOCYTES % (AUTO) 6 % (0-12); NEUTROPHILS # (AUTO) 9.1 10^3/uL (1.8-7.8); NEUTROPHILS % (AUTO) 78 % (42-75); PLATELET COUNT 404 10^3/uL (130-400); WHITE BLOOD COUNT 11.7 10^3/uL (4.3-11.0)
[2022-02-21 08:28] LABS: CALCIUM 8.9 MG/DL (8.5-10.1); CREATININE SERUM 0.77 MG/DL (0.60-1.30); POTASSIUM 4.4 MMOL/L (3.6-5.0)
[2022-02-21] MEDS: DICYCLOMINE 10 MG (BENTYL) CAP PO SCH ×3 (08:39→20:43)
[2022-02-21] MEDS: PANTOPRAZOLE 40 MG (PROTONIX) TAB PO SCH ×2 (08:40→20:43)
[2022-02-21] MEDS: FLUCONAZOLE 100 MG/50 ML IVPB IV SCH (08:40)
[2022-02-21] MEDS: ALPRAZolam 0.25 MG (XANAX) TAB PO PRN (08:44)
--- NOTE | 2022-02-21 09:49 | Progress Note ---
Subjective Date Seen by a Provider: Feb 21, 2022 Time Seen by a Provider: 09:20 Subjective/Events-last exam Patient seen with Dr. Harry. Patient reports doing ok, but tired. Tolerating diet. Denies any fever/chills. Objective Exam Vital Signs Date Time Temp Pulse Resp B/P (MAP) Pulse Ox O2 Delivery O2 Flow Rate FiO2 02/21/22 07:48 36.6 71 18 132/82 (99) 94 Room Air 02/21/22 04:00 36.7 69 17 130/80 (97) 99 Room Air 02/21/22 00:00 36.6 70 18 123/78 (93) 94 Room Air 02/20/22 20:30 95 Room Air 0.00 02/20/22 19:27 36.5 76 18 127/73 (91) 95 Room Air 02/20/22 15:42 36.2 70 18 122/76 (91) 95 Room Air 02/20/22 11:49 36.1 74 18 128/77 (94) 94 Room Air I & O 02/21/22 07:00 Intake Total 1910 ml Output Total 2135 ml Balance -225 ml Capillary Refill : General Appearance: No Apparent Distress, WD/WN Neck: Normal Inspection, Supple Respiratory: No Accessory Muscle Use, No Respiratory Distress Cardiovascular: Regular Rate, Rhythm, No Edema Gastrointestinal: normal bowel sounds, soft, tenderness Extremity: Normal Inspection, Normal Range of Motion Neurologic/Psychiatric: Alert, Oriented x3 Skin: Normal Color, Warm/Dry, Other (Mid-abdominal incision with no redness or erythema. Good granulation tissue with fisulta draining stool.) Results Lab Laboratory Tests 02/21/22 07:59: White Blood Count 11.7H, Red Blood Count 4.67, Hemoglobin 14.5, Hematocrit 42, Mean Corpuscular Volume 91, Mean Corpuscular Hemoglobin 31, Mean Corpuscular Hemoglobin Concent 34, Red Cell Distribution Width 12.9, Platelet Count 404H, Mean Platelet Volume 9.7, Immature Granulocyte % (Auto) 1, Neutrophils (%) (Auto) 78H, Lymphocytes (%) (Auto) 12, Monocytes (%) (Auto) 6, Eosinophils (%) (Auto) 3, Basophils (%) (Auto) 1, Neutrophils # (Auto) 9.1H, Lymphocytes # (Auto) 1.4, Monocytes # (Auto) 0.7, Eosinophils # (Auto) 0.3, Basophils # (Auto) 0.1, Immature Granulocyte # (Auto) 0.2H, Sodium Level 139, Potassium Level 4.4, Chloride Level 103, Carbon Dioxide Level 21, Anion Gap 15H, Blood Urea Nitrogen 8, Creatinine 0.77, Estimat Glomerular Filtration Rate 103, BUN/Creatinine Ratio 10, Glucose Level 114H, Calcium Level 8.9 Microbiology 02/15/22 Gram Stain - Final, Complete 02/15/22 Wound Culture - Final, Complete YEAST Enterococcus gallinarum Assessment/Plan Assessment/Plan Assess & Plan/Chief Complaint s/p lap mary for acute calculous cholecystitis. HIDA normal with no bile leak. 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 no surgery for now. will recommend low residue diet and continued abx and antifungals. if large fistula out put will place ostomy bag. 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 cont abx, start octreotide, low residue diet. active enteritis. will continue to treat EC fistula with IV abx over weekend. will need GI referral as soon as d/c from hospital. WBC - 11.7 today and trending down [employer] Feb 21, 2022 09:49
[2022-02-21 11:16] VITALS: BP 138/83
[2022-02-21] MEDS: fentaNYL INJ 100 MCG/2 ML AMP IVP PRN ×2 (11:43→15:37)
--- NOTE | 2022-02-21 12:52 | Progress Note - Hospitalist ---
Subjective HPI/CC On Admission Date Seen by Provider: Feb 21, 2022 Time Seen by Provider: 12:00 CC: Abdominal pain HPI: This is a 61 yr WM who was admitted to [facility] on 02/11/22. Pt underwent a cholecystectomy. He was doing well. Suffered abdominal pain again. He was found to have an abdominal wall abscess. He was admitted and placed on Zosyn antibiotics. HIDA scan showed no biliary leak but Dr. Harry will assess. He does see a colorectal surgeon and records management technician. Subjective/Events-last exam Patient reports some mild abdominal discomfort without nausea but reports loss of appetite with poor p.o. intake thus far today. Denies chills fever chest pain cough or shortness of breath reports feeling generally weak. He reports he normally takes his alprazolam twice daily scheduled clinically appears depressed As well as a little anxious. Objective Exam Vital Signs Vital Signs Date Time Temp Pulse Resp B/P (MAP) Pulse Ox O2 Delivery O2 Flow Rate FiO2 02/21/22 11:16 36.1 77 17 138/83 (101) 93 Room Air 02/20/22 20:30 0.00 Capillary Refill : General Appearance: Mild Distress Respiratory: Chest Non Tender, Lungs Clear, Normal Breath Sounds, No Accessory Muscle Use, No Respiratory Distress Cardiovascular: Regular Rate, Rhythm, No Edema, No Gallop, No JVD, No Murmur, Normal Peripheral Pulses Gastrointestinal: Other (Mild distention unchanged bowel sounds positiveNo output noted from fistula stool in the right lower quadrant ileostomy bag soft no significant discomfort to palpation. No mass appreciated.) Extremity: Normal Inspection, Normal Range of Motion, Non Tender, No Calf Tenderness, No Pedal Edema Results/Procedures Lab Laboratory Tests 02/21/22 07:59 Patient resulted labs reviewed. Assessment/Plan Assessment and Plan Assess & Plan/Chief Complaint A/P. Status post enterocutaneous fistula post laparoscopic cholecystectomy most likely due to active Crohn's disease. There is no evidence of recurrent sepsis patient is tolerating regular diet continuing broad-spectrum antibiotics in the form of Zosyn likely over the weekend discharge per Dr. Harry. No evidence for sepsis at this time. Patient in the process of getting set up to see gastroenterology with likely need for endoscopy and treatment for underlying Crohn's disease. Dr. Harry initiating Sandostatin. 2. Underlying generalized anxiety with some likely reactive depression patient reassured that there was not anything that was not potentially treatable and will initiate his alprazolam the way he is used to taking it scheduled twice daily. AILEEN MCGINNIS MD Feb 21, 2022 12:52
[2022-02-21] MEDS: HYDROcodone/APAP 7.5 MG/325 MG (LORTAB, LORCET PLUS) TABLET PO PRN (13:38)
[2022-02-21 16:30] VITALS: BP 124/82
[2022-02-21 19:45] VITALS: BP 135/86
[2022-02-21] MEDS: ALPRAZolam 0.25 MG (XANAX) TAB PO SCH (20:43)
[2022-02-21] MEDS: ENOXAPARIN 40 MG/0.4 ML (LOVENOX) SYR SC SCH (20:43)
[2022-02-21] MEDS: AMITRIPTYLINE 25 MG (ELAVIL) TAB PO SCH (20:43)
[2022-02-21] MEDS ORDERED: AMOX-355 PO (21:10)
[2022-02-21] MEDS ORDERED: HYDR-3817 PO (21:10)
[2022-02-21] MEDS ORDERED: FLUC100T PO (21:10)
[2022-02-21] MEDS ORDERED: [UNRECOGNIZED DRUG - CODE] PO (21:10)
--- NOTE | 2022-02-21 21:12 | Discharge Inst-Surgical ---
D/C Lap Instructions-MIRI New, Converted, or Re-Newed RX: RX on Chart Follow Up Appt in 1 week Activity as tolerated No driving for 24 hours No driving while on pain medications Incentive Spirometry use every 2 hours while awake low residue diet next 6 weeks. pack open wound with gauze followed by ostomy bag daily and PRN Symptoms to Report: Fever over 101 degree F, Nausea/Vomiting Infection Signs and Symptoms to report: Increased redness, Foul odor of wound, Increased drainage Bathing instructions: May shower Operative Area Clean/Dry; Keep incision clean/dry If any problems/questions: Contact your physician or go to Emergency Room DEONNA CHERY MD Feb 21, 2022 21:12
[2022-02-22] MEDS: OCTREOTIDE (FOR SQ USE) 100 MCG/ML VIAL (SandoSTATIN) SC SCH ×4 (00:29→23:59)
[2022-02-22] MEDS: HYDROcodone/APAP 7.5 MG/325 MG (LORTAB, LORCET PLUS) TABLET PO PRN (00:31)
[2022-02-22 00:39] VITALS: BP 131/80
[2022-02-22] MEDS: fentaNYL INJ 100 MCG/2 ML AMP IVP PRN ×7 (02:43→21:47)
[2022-02-22 04:00] VITALS: BP 120/77
--- NOTE | 2022-02-22 04:24 | Progress Note ---
Subjective Date Seen by a Provider: Feb 22, 2022 Time Seen by a Provider: 11:45 Subjective/Events-last exam Patient doing pretty well Fistula output has started again but not a lot at bedside Answered all questions to the best of my ability Pain tolerable Walking around a bit so I told him to walk more Review of Systems General: Fatigue, Malaise Gastrointestinal: Abdominal Pain Objective Exam Last Set of Vital Signs Vital Signs Date Time Temp Pulse Resp B/P (MAP) Pulse Ox O2 Delivery O2 Flow Rate FiO2 02/22/22 00:39 36.5 73 18 131/80 (97) 93 Room Air 02/20/22 20:30 0.00 Capillary Refill : I&O Intake and Output 02/22/22 00:00 Intake Total 1610 ml Output Total 1025 ml Balance 585 ml Intake Oral 1560 ml IV Total 50 ml Output Urine Total 1025 ml # Voids 2 General: Alert, Oriented X3, Cooperative, No Acute Distress Lungs: Clear to Auscultation, Normal Air Movement Heart: Regular Rate, Normal S1, Normal S2, No Murmurs Neuro: Normal Gait, Normal Speech, Strength at 5/5 X4 Ext, Normal Tone Psych/Mental Status: Mental Status NL, Mood NL Results Lab Laboratory Tests 02/21/22 07:59: White Blood Count 11.7H, Red Blood Count 4.67, Hemoglobin 14.5, Hematocrit 42, Mean Corpuscular Volume 91, Mean Corpuscular Hemoglobin 31, Mean Corpuscular Hemoglobin Concent 34, Red Cell Distribution Width 12.9, Platelet Count 404H, Mean Platelet Volume 9.7, Immature Granulocyte % (Auto) 1, Neutrophils (%) (Auto) 78H, Lymphocytes (%) (Auto) 12, Monocytes (%) (Auto) 6, Eosinophils (%) (Auto) 3, Basophils (%) (Auto) 1, Neutrophils # (Auto) 9.1H, Lymphocytes # (Auto) 1.4, Monocytes # (Auto) 0.7, Eosinophils # (Auto) 0.3, Basophils # (Auto) 0.1, Immature Granulocyte # (Auto) 0.2H, Sodium Level 139, Potassium Level 4.4, Chloride Level 103, Carbon Dioxide Level 21, Anion Gap 15H, Blood Urea Nitrogen 8, Creatinine 0.77, Estimat Glomerular Filtration Rate 103, BUN/Creatinine Ratio 10, Glucose Level 114H, Calcium Level 8.9 Microbiology 02/15/22 Gram Stain - Final, Complete 02/15/22 Wound Culture - Final, Complete YEAST Enterococcus gallinarum Assessment/Plan Assessment/Plan Assess & Plan/Chief Complaint Assessment: Abdominal pain Postop ileus Cholecystectomy 02/11/2022 at [facility] by Dr. CHERY Abdominal wall abscess Crohn's disease Diverticulosis Fistula formation? Plan: Broad-spectrum antibiotics HIDA scan Pain meds Supportive care 02/17/22: Supportive care IV abx Monitor closely 02/18/2022: Supportive care Wound care consult Antibiotics 02/19/22: Fistula management 02/22/22: Monitor closely Ambulate DVT PPx DC tomorrow? Diagnosis/Problems Diagnosis/Problems (1) Abdominal pain PETRONA ALCOCER DO Feb 22, 2022 04:24
[2022-02-22] MEDS: MULTIVIT W/MINERALS TAB (THERAGRAN M) PO SCH (05:10)
[2022-02-22 05:43] LABS: BASOPHILS # (AUTO) 0.1 10^3/uL (0.0-0.1); BASOPHILS % (AUTO) 1 % (0-10); EOSINOPHILS # (AUTO) 0.3 10^3/uL (0.0-0.3); EOSINOPHILS % (AUTO) 3 % (0-10); HEMATOCRIT 42 % (40-54); HEMOGLOBIN 14.4 g/dL (13.3-17.7); LYMPHOCYTES # (AUTO) 1.7 10^3/uL (1.0-4.0); LYMPHOCYTES % (AUTO) 13 % (12-44); MEAN CORPUSCULAR HEMOGLOBIN 31 pg (25-34); MEAN CORPUSCULAR HGB CONC 34 g/dL (32-36); MEAN CORPUSCULAR VOLUME 91 fL (80-99); MEAN PLATELET VOLUME 9.8 fL (9.0-12.2); MONOCYTES # (AUTO) 0.8 10^3/uL (0.0-1.0); MONOCYTES % (AUTO) 6 % (0-12); NEUTROPHILS # (AUTO) 9.8 10^3/uL (1.8-7.8); NEUTROPHILS % (AUTO) 76 % (42-75); PLATELET COUNT 387 10^3/uL (130-400); WHITE BLOOD COUNT 12.9 10^3/uL (4.3-11.0)
[2022-02-22 05:57] LABS: ALBUMIN 3.2 GM/DL (3.2-4.5); POTASSIUM 4.2 MMOL/L (3.6-5.0)
[2022-02-22 05:58] LABS: CALCIUM 8.6 MG/DL (8.5-10.1)
[2022-02-22 06:00] LABS: TOTAL PROTEIN 6.4 GM/DL (6.4-8.2)
[2022-02-22 06:01] LABS: BILIRUBIN,TOTAL 0.4 MG/DL (0.1-1.0)
[2022-02-22 06:03] LABS: CREATININE SERUM 0.73 MG/DL (0.60-1.30)
[2022-02-22 06:05] LABS: BILIRUBIN,DIRECT 0.2 MG/DL (0.0-0.3); BILIRUBIN,INDIRECT 0.2 MG/DL
[2022-02-22 07:51] VITALS: BP 125/80
[2022-02-22] MEDS: DICYCLOMINE 10 MG (BENTYL) CAP PO SCH ×3 (08:50→21:44)
[2022-02-22] MEDS: PANTOPRAZOLE 40 MG (PROTONIX) TAB PO SCH ×2 (08:50→21:43)
[2022-02-22] MEDS: FLUCONAZOLE 100 MG/50 ML IVPB IV SCH (08:50)
[2022-02-22] MEDS: ALPRAZolam 0.25 MG (XANAX) TAB PO SCH ×2 (08:50→21:43)
[2022-02-22 11:41] VITALS: BP 117/76
[2022-02-22 15:37] VITALS: BP 119/77
--- NOTE | 2022-02-22 17:02 | Progress Note ---
Subjective Date Seen by a Provider: Feb 22, 2022 Time Seen by a Provider: 16:30 Subjective/Events-last exam doing well. pain controlled. tolerating diet. no fever/chills. Objective Exam Vital Signs Date Time Temp Pulse Resp B/P (MAP) Pulse Ox O2 Delivery O2 Flow Rate FiO2 02/22/22 15:37 36.3 96 16 119/77 (91) 93 Room Air 02/22/22 11:41 36.7 68 18 117/76 (90) 94 Room Air 02/22/22 08:00 94 Room Air 02/22/22 07:51 36.4 65 16 125/80 (95) 93 Room Air 02/22/22 04:00 36.1 65 16 120/77 (91) 93 Room Air 02/22/22 00:39 36.5 73 18 131/80 (97) 93 Room Air 02/21/22 20:55 Room Air 02/21/22 19:45 36.2 70 16 135/86 (102) 93 Room Air I & O 02/22/22 07:00 Intake Total 1460 ml Output Total 1000 ml Balance 460 ml Capillary Refill : General Appearance: No Apparent Distress HEENT: PERRL/EOMI Neck: Full Range of Motion Respiratory: Chest Non Tender, Lungs Clear, Normal Breath Sounds Cardiovascular: Regular Rate, Rhythm Gastrointestinal: normal bowel sounds, soft, other (wound dressed/dry) Extremity: Normal Capillary Refill Neurologic/Psychiatric: Alert, Oriented x3 Skin: Normal Color Lymphatic: No Adenopathy Results Lab Laboratory Tests 02/22/22 05:20: White Blood Count 12.9H, Red Blood Count 4.65, Hemoglobin 14.4, Hematocrit 42, Mean Corpuscular Volume 91, Mean Corpuscular Hemoglobin 31, Mean Corpuscular Hemoglobin Concent 34, Red Cell Distribution Width 12.9, Platelet Count 387, Mean Platelet Volume 9.8, Immature Granulocyte % (Auto) 1, Neutrophils (%) (Auto) 76H, Lymphocytes (%) (Auto) 13, Monocytes (%) (Auto) 6, Eosinophils (%) (Auto) 3, Basophils (%) (Auto) 1, Neutrophils # (Auto) 9.8H, Lymphocytes # (Auto) 1.7, Monocytes # (Auto) 0.8, Eosinophils # (Auto) 0.3, Basophils # (Auto) 0.1, Immature Granulocyte # (Auto) 0.1, Sodium Level 135, Potassium Level 4.2, Chloride Level 103, Carbon Dioxide Level 21, Anion Gap 11, Blood Urea Nitrogen 10, Creatinine 0.73, Estimat Glomerular Filtration Rate 104, BUN/Creatinine Ratio 14, Glucose Level 110H, Calcium Level 8.6, Total Bilirubin 0.4, Direct Bilirubin 0.2, Indirect Bilirubin 0.2, Aspartate Amino Transf (AST/SGOT) 19, Alanine Aminotransferase (ALT/SGPT) 29, Alkaline Phosphatase 107, Total Protein 6.4, Albumin 3.2 Microbiology 02/15/22 Gram Stain - Final, Complete 02/15/22 Wound Culture - Final, Complete YEAST Enterococcus gallinarum Assessment/Plan Assessment/Plan Assess & Plan/Chief Complaint s/p lap mary for acute calculous cholecystitis. HIDA normal with no bile leak. 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 no surgery for now. will recommend low residue diet and continued abx and ant ifungals. if large fistula out put will place ostomy bag. 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 cont abx, start octreotide, low residue diet. active enteritis. will continue to treat EC fistula with IV abx over weekend. will need GI referral as soon as d/c from hospital. DEONNA CHERY MD Feb 22, 2022 17:02
[2022-02-22 19:06] VITALS: BP 111/72
[2022-02-22] MEDS: ENOXAPARIN 40 MG/0.4 ML (LOVENOX) SYR SC SCH (21:44)
[2022-02-22] MEDS: AMITRIPTYLINE 25 MG (ELAVIL) TAB PO SCH (21:44)
[2022-02-23 00:13] VITALS: BP 112/63
[2022-02-23 04:13] VITALS: BP 107/64
[2022-02-23 05:33] LABS: BASOPHILS # (AUTO) 0.1 10^3/uL (0.0-0.1); BASOPHILS % (AUTO) 1 % (0-10); EOSINOPHILS # (AUTO) 0.2 10^3/uL (0.0-0.3); EOSINOPHILS % (AUTO) 2 % (0-10); HEMATOCRIT 46 % (40-54); HEMOGLOBIN 15.4 g/dL (13.3-17.7); LYMPHOCYTES # (AUTO) 1.6 10^3/uL (1.0-4.0); LYMPHOCYTES % (AUTO) 13 % (12-44); MEAN CORPUSCULAR HEMOGLOBIN 31 pg (25-34); MEAN CORPUSCULAR HGB CONC 34 g/dL (32-36); MEAN CORPUSCULAR VOLUME 92 fL (80-99); MEAN PLATELET VOLUME 9.8 fL (9.0-12.2); MONOCYTES # (AUTO) 0.9 10^3/uL (0.0-1.0); MONOCYTES % (AUTO) 7 % (0-12); NEUTROPHILS # (AUTO) 9.8 10^3/uL (1.8-7.8); NEUTROPHILS % (AUTO) 77 % (42-75); PLATELET COUNT 431 10^3/uL (130-400); WHITE BLOOD COUNT 12.7 10^3/uL (4.3-11.0)
[2022-02-23 05:50] LABS: POTASSIUM 4.5 MMOL/L (3.6-5.0)
[2022-02-23 05:55] LABS: CREATININE SERUM 0.83 MG/DL (0.60-1.30)
--- NOTE | 2022-02-23 05:59 | Progress Note ---
Subjective Date Seen by a Provider: Feb 23, 2022 Time Seen by a Provider: 09:00 Subjective/Events-last exam Patient very depressed Tried to reassure Conferred with Dr Chery Fistula continues to produce a lot of bowel products No pain reported other than his abdomen Counseled on the need to ambulate Lovenox maintained Updated PCP Dr Delcid Review of Systems General: Fatigue, Malaise Gastrointestinal: Abdominal Pain Objective Exam Last Set of Vital Signs Vital Signs Date Time Temp Pulse Resp B/P (MAP) Pulse Ox O2 Delivery O2 Flow Rate FiO2 02/23/22 04:13 36.3 75 16 107/64 (78) 95 Room Air 02/20/22 20:30 0.00 Capillary Refill : I&O Intake and Output 02/23/22 00:00 Intake Total 2040 ml Output Total 2475 ml Balance -435 ml Intake Oral 2040 ml Output Urine Total 1725 ml Stool Total 750 ml Results Lab Laboratory Tests 02/23/22 05:17: Sodium Level 135, Potassium Level 4.5, Chloride Level 101, Carbon Dioxide Level 20L, Anion Gap 14, Blood Urea Nitrogen 13, Creatinine 0.83, Estimat Glomerular Filtration Rate 100, BUN/Creatinine Ratio 16, Glucose Level 116H, Calcium Level 9.0 02/23/22 05:24: White Blood Count 12.7H, Red Blood Count 4.98, Hemoglobin 15.4, Hematocrit 46, Mean Corpuscular Volume 92, Mean Corpuscular Hemoglobin 31, Mean Corpuscular Hemoglobin Concent 34, Red Cell Distribution Width 13.1, Platelet Count 431H, Mean Platelet Volume 9.8, Immature Granulocyte % (Auto) 1, Neutrophils (%) (Auto) 77H, Lymphocytes (%) (Auto) 13, Monocytes (%) (Auto) 7, Eosinophils (%) (Auto) 2, Basophils (%) (Auto) 1, Neutrophils # (Auto) 9.8H, Lymphocytes # (Auto) 1.6, Monocytes # (Auto) 0.9, Eosinophils # (Auto) 0.2, Basophils # (Auto) 0.1, Immature Granulocyte # (Auto) 0.1 Microbiology 02/15/22 Gram Stain - Final, Complete 02/15/22 Wound Culture - Final, Complete YEAST Enterococcus gallinarum Assessment/Plan Assessment/Plan Assess & Plan/Chief Complaint Assessment: Abdominal pain Postop ileus Cholecystectomy 02/11/[address] [facility] by Dr. CHERY Abdominal wall abscess Crohn's disease Diverticulosis Fistula formation? Plan: Broad-spectrum antibiotics HIDA scan Pain meds Supportive care 02/17/22: Supportive care IV abx Monitor closely 02/18/2022: Supportive care Wound care consult Antibiotics 02/19/22: Fistula management 02/22/22: Monitor closely Ambulate DVT PPx DC tomorrow? 02/23/22: Monitor closely ABx Lovenox Diagnosis/Problems Diagnosis/Problems (1) Abdominal pain PETRONA ALCOCER DO Feb 23, 2022 05:59
[2022-02-23] MEDS: MULTIVIT W/MINERALS TAB (THERAGRAN M) PO SCH (06:34)
[2022-02-23 07:47] VITALS: BP 130/74
[2022-02-23] MEDS: OCTREOTIDE (FOR SQ USE) 100 MCG/ML VIAL (SandoSTATIN) SC SCH ×3 (09:18→23:02)
[2022-02-23] MEDS: DICYCLOMINE 10 MG (BENTYL) CAP PO SCH ×3 (09:18→20:24)
[2022-02-23] MEDS: PANTOPRAZOLE 40 MG (PROTONIX) TAB PO SCH ×2 (09:18→20:24)
[2022-02-23] MEDS: fluCOnazole (DIFLUCAN) 100 MG TAB PO SCH (09:19)
[2022-02-23] MEDS: ALPRAZolam 0.25 MG (XANAX) TAB PO SCH ×2 (09:22→20:24)
[2022-02-23 11:29] VITALS: BP 110/68
[2022-02-23] MEDS: fentaNYL INJ 100 MCG/2 ML AMP IVP PRN ×2 (12:08→20:25)
--- NOTE | 2022-02-23 14:25 | Progress Note ---
Subjective Date Seen by a Provider: Feb 23, 2022 Time Seen by a Provider: 13:00 Subjective/Events-last exam doing ok. tolerating diet. had some fistula output. pain controlled. Objective Exam Vital Signs Date Time Temp Pulse Resp B/P (MAP) Pulse Ox O2 Delivery O2 Flow Rate FiO2 02/23/22 11:29 36.6 68 16 110/68 (82) 96 Room Air 02/23/22 08:00 Room Air 02/23/22 07:47 36.8 70 18 130/74 (92) 94 Room Air 02/23/22 04:13 36.3 75 16 107/64 (78) 95 Room Air 02/23/22 00:13 36.3 86 16 112/63 (79) 93 Room Air 02/22/22 21:50 Room Air 02/22/22 19:06 36.2 83 16 111/72 (85) 92 Room Air 02/22/22 15:37 36.3 96 16 119/77 (91) 93 Room Air I & O 02/23/22 07:00 Intake Total 1940 ml Output Total 2325 ml Balance -385 ml Capillary Refill : General Appearance: No Apparent Distress HEENT: PERRL/EOMI Neck: Full Range of Motion Respiratory: Chest Non Tender Cardiovascular: Regular Rate, Rhythm Gastrointestinal: soft, tenderness Extremity: Normal Capillary Refill Neurologic/Psychiatric: Alert, Oriented x3 Skin: Normal Color Lymphatic: No Adenopathy Results Lab Laboratory Tests 02/23/22 05:17: Sodium Level 135, Potassium Level 4.5, Chloride Level 101, Carbon Dioxide Level 20L, Anion Gap 14, Blood Urea Nitrogen 13, Creatinine 0.83, Estimat Glomerular Filtration Rate 100, BUN/Creatinine Ratio 16, Glucose Level 116H, Calcium Level 9.0 02/23/22 05:24: White Blood Count 12.7H, Red Blood Count 4.98, Hemoglobin 15.4, Hematocrit 46, Mean Corpuscular Volume 92, Mean Corpuscular Hemoglobin 31, Mean Corpuscular Hemoglobin Concent 34, Red Cell Distribution Width 13.1, Platelet Count 431H, Mean Platelet Volume 9.8, Immature Granulocyte % (Auto) 1, Neutrophils (%) (Auto) 77H, Lymphocytes (%) (Auto) 13, Monocytes (%) (Auto) 7, Eosinophils (%) (Auto) 2, Basophils (%) (Auto) 1, Neutrophils # (Auto) 9.8H, Lymphocytes # (Auto) 1.6, Monocytes # (Auto) 0.9, Eosinophils # (Auto) 0.2, Basophils # (Auto) 0.1, Immature Granulocyte # (Auto) 0.1 Microbiology 02/15/22 Gram Stain - Final, Complete 02/15/22 Wound Culture - Final, Complete YEAST Enterococcus gallinarum Assessment/Plan Assessment/Plan Assess & Plan/Chief Complaint s/p lap mary for acute calculous cholecystitis. HIDA normal with no bile leak. 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 no surgery for now. will recommend low residue diet and continued abx and antifungals. if large fistula out put will place ostomy bag. 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 cont abx, start octreotide, low residue diet. active enteritis. will continue to treat EC fistula with IV abx over weekend. will need GI referral as soon as d/c from hospital. DEONNA CHERY MD Feb 23, 2022 14:25
[2022-02-23 16:03] VITALS: BP 114/68
[2022-02-23] MEDS ORDERED: diphenhydrAMINE 50 MG/ML INJ (BENADRYL) IVP PRN (19:15)
[2022-02-23 19:39] VITALS: BP 130/74
[2022-02-23] MEDS: HYDROcodone/APAP 7.5 MG/325 MG (LORTAB, LORCET PLUS) TABLET PO PRN (20:24)
[2022-02-23] MEDS: AMITRIPTYLINE 25 MG (ELAVIL) TAB PO SCH (20:24)
[2022-02-23] MEDS: ENOXAPARIN 40 MG/0.4 ML (LOVENOX) SYR SC SCH (20:25)
[2022-02-24] VITALS: BP 111/72
[2022-02-24] MEDS: HYDROcodone/APAP 7.5 MG/325 MG (LORTAB, LORCET PLUS) TABLET PO PRN ×3 (03:26→13:58)
[2022-02-24] MEDS: fentaNYL INJ 100 MCG/2 ML AMP IVP PRN (03:27)
[2022-02-24] MEDS: MULTIVIT W/MINERALS TAB (THERAGRAN M) PO SCH (03:27)
[2022-02-24 04:01] VITALS: BP 115/66
--- NOTE | 2022-02-24 06:38 | Progress Note ---
Subjective Date Seen by a Provider: Feb 24, 2022 Time Seen by a Provider: 09:00 Subjective/Events-last exam Patient doing well Abx tolerated DC planned Moving around well Ostomy bag helping drain fistula. Review of Systems Gastrointestinal: Abdominal Pain Objective Exam Last Set of Vital Signs Vital Signs Date Time Temp Pulse Resp B/P (MAP) Pulse Ox O2 Delivery O2 Flow Rate FiO2 02/24/22 04:01 36.2 70 16 115/66 (82) 92 Room Air 02/20/22 20:30 0.00 Capillary Refill : I&O Intake and Output 02/24/22 00:00 Intake Total 1200 ml Output Total 1350 ml Balance -150 ml Intake Oral 1200 ml Output Urine Total 400 ml Stool Total 600 ml Drainage Total 350 ml # Voids 4 General: Alert, Oriented X3, Cooperative, No Acute Distress Lungs: Clear to Auscultation, Normal Air Movement Heart: Regular Rate, Normal S1, Normal S2, No Murmurs Neuro: Normal Gait, Normal Speech, Strength at 5/5 X4 Ext, Normal Tone Psych/Mental Status: Mental Status NL, Mood NL Results Lab Microbiology 02/15/22 Gram Stain - Final, Complete 02/15/22 Wound Culture - Final, Complete YEAST Enterococcus gallinarum Assessment/Plan Assessment/Plan Assess & Plan/Chief Complaint Assessment: Abdominal pain Postop ileus Cholecystectomy 02/11/2022 at [facility] by Dr. CHERY Abdominal wall abscess Crohn's disease Diverticulosis Fistula formation Plan: Broad-spectrum antibiotics HIDA scan Pain meds Supportive care 02/17/22: Supportive care IV abx Monitor closely 02/18/2022: Supportive care Wound care consult Antibiotics 02/19/22: Fistula management 02/22/22: Monitor closely Ambulate DVT PPx DC tomorrow? 02/23/22: Monitor closely ABx Lovenox 02/24/22: DC today Diagnosis/Problems Diagnosis/Problems (1) Abdominal pain PETRONA ALCOCER DO Feb 24, 2022 06:38
[2022-02-24 07:43] VITALS: BP 114/62
[2022-02-24] MEDS: OCTREOTIDE (FOR SQ USE) 100 MCG/ML VIAL (SandoSTATIN) SC SCH ×2 (09:02→16:52)
[2022-02-24] MEDS: DICYCLOMINE 10 MG (BENTYL) CAP PO SCH ×2 (09:03→13:59)
[2022-02-24] MEDS: ALPRAZolam 0.25 MG (XANAX) TAB PO SCH (09:03)
[2022-02-24] MEDS: fluCOnazole (DIFLUCAN) 100 MG TAB PO SCH (09:04)
[2022-02-24] MEDS: PANTOPRAZOLE 40 MG (PROTONIX) TAB PO SCH (09:04)
--- NOTE | 2022-02-24 15:49 | D/C HH Face to Face Order ---
D/C Face to Face Orders Instructions for Patient Via [facility], Patient Instructions/FollowUp: f/u with dr. chery 1 week. call office for appt. Physician to follow Patient: rex Discharge Diet for Home: Low Residue Patient Data-Allergies,Ht & Wt Patient Allergies: Coded Allergies: No Known Drug Allergies (Unverified , 02/15/22) Home Health Need/Face to Face Date of Face to Face: Feb 24, 2022 Clinical Findings: Generalized weakness and fatigue, Non-healing wound, Other- list in note (enterocutaneous fistula) I have seen Pt [id number]: Yes Discharged To: Home Diagnosis/Conditions: crohn's disease and enterocutaneous fistula Patient is Homebound due to: Muscle weakness (due to chrohns disease and enterocutaneous fistula) Homebound Status Due to the above stated illness, injury or surgical procedure (medical condition or diagnosis) and associated clinical findings, the patient is homebound because of his/her inability to leave home except with aid of a supportive device and/or person AND leaving the home requires a considerable and taxing effort or is medically contraindicated. Pt req the following assistanc: Aid of another person Home Health Nursing Orders Home Health Services Order: Nursing Services (fistula wound care. pack with gau ze followed by ostomy bag daily) Certify Stmt I certify that this patient is under my care and that I, a nurse practitioner or a physician; a assistant housekeeping manager working with me, had a face to face encounter that - meets the physician face to face encounter requirements with this patient as dated. DEONNA CHERY MD Feb 24, 2022 15:49
--- NOTE | 2022-02-24 15:51 | Progress Note ---
Subjective Date Seen by a Provider: Feb 24, 2022 Time Seen by a Provider: 15:30 Subjective/Events-last exam doing well. tolerating diet. no fever/chills. Objective Exam Vital Signs Date Time Temp Pulse Resp B/P (MAP) Pulse Ox O2 Delivery O2 Flow Rate FiO2 02/24/22 08:00 Room Air 02/24/22 07:43 36.7 63 17 114/62 (79) 95 Room Air 02/24/22 04:01 36.2 70 16 115/66 (82) 92 Room Air 02/24/22 00:00 36.8 71 16 111/72 (85) 94 Room Air 02/23/22 20:50 Room Air 02/23/22 19:39 37.0 94 18 130/74 (92) 95 Room Air 02/23/22 16:03 36.9 82 18 114/68 (83) 95 Room Air I & O 02/24/22 07:00 Intake Total 1250 ml Output Total 1180 ml Balance 70 ml Capillary Refill : General Appearance: No Apparent Distress HEENT: PERRL/EOMI Neck: Full Range of Motion Respiratory: Chest Non Tender, Lungs Clear, Normal Breath Sounds Cardiovascular: Regular Rate, Rhythm Gastrointestinal: normal bowel sounds, soft, tenderness Extremity: Normal Capillary Refill Neurologic/Psychiatric: Alert, Oriented x3 Skin: Normal Color Lymphatic: No Adenopathy Results Lab Microbiology 02/15/22 Gram Stain - Final, Complete 02/15/22 Wound Culture - Final, Complete YEAST Enterococcus gallinarum Assessment/Plan Assessment/Plan Assess & Plan/Chief Complaint s/p lap mary for acute calculous cholecystitis. HIDA normal with no bile leak. 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 no surgery for now. will recommend low residue diet and continued abx and antifungals. if large fistula out put will place ostomy bag. 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 cont abx, start octreotide, low residue diet. active enteritis. will continue to treat EC fistula with IV abx over weekend. will need GI referral as soon as d/c from hospital. home with home health. DEONNA CHERY MD Feb 24, 2022 15:51
[2022-02-24 16:24] VITALS: BP 117/73
[2022-02-24 16:52] VITALS: BP 117/73
== END 2022-02-24 16:52 | disposition home health service (06) | DRG 386 ==
LOC: 4TH 13:05 → OBSVTOIN 02-17 13:41
PROVIDERS: ADMIT Surgery; ATTEND Surgery
PROC: 0J980ZZ Drainage of Abdomen Subcutaneous Tissue and Fascia, Open Approach (ICD-10-PCS; principal; 2022-02-15)
DX: K50.013 Crohn's disease of small intestine with fistula (principal); K56.7 Ileus, unspecified; K21.9 Gastro-esophageal reflux disease without esophagitis; K57.90 Diverticulosis of intestine, part unspecified, without perforation or abscess without bleeding; Z93.2 Ileostomy status
CPT/HCPCS: 36415; 74176; 78226; 80048; 80053; 80076; 85025; 87070; 87075; 87077; 87205; 94664; G0378

== ENCOUNTER 2023-05-05 05:33 | Outpatient (CLI) | payer OTHER ==
[~2023-05-05] VITALS: Ht 188 cm; Wt 108.2 kg
[~2023-05-05 05:33] MED LIST changes: +ALPR0.254 PO; +AMIT25TA9 PO; +AMOX-355 PO; +DICY20TA PO; +FLUC100T PO; +HYDR-3817 PO; +IBUP-2473 PO; +PANT40TA52 PO; +PEDI300T11 PO; +[UNRECOGNIZED DRUG - CODE] PO
[2023-05-05] MEDS ORDERED: TMSL.4C PO (13:53)
[2023-05-05] MEDS ORDERED: ADAL40PE5 SQ (13:53)
[2023-05-05] MEDS ORDERED: AZAT100T2 PO (13:53)
== END 2023-05-05 14:21 | disposition home or self-care (01) ==
LOC: PREOP 05:33
PROVIDERS: ATTEND Surgery
DX: Z01.818 Encounter for other preprocedural examination (principal)

== ENCOUNTER 2023-05-12 09:40 | Day surgery (SDC) | payer OTHER ==
[~2023-05-12] VITALS: Ht 188 cm; Wt 108.2 kg
[2023-05-12] VITALS (14 sets, daily range): BP systolic 80–136; BP diastolic 45–89
[~2023-05-12 09:40] MED LIST changes: +ADAL40PE5 SQ; +AZAT100T2 PO; +TMSL.4C PO
[2023-05-12] MEDS ORDERED: LIDOCAINE 1% w/EPI 1:100,000 20 ML VIAL ONE (09:45)
[2023-05-12] MEDS: LACTATED RINGERS 1,000 ML 1,000 ML IV PRN ×2 (10:10→11:35)
[2023-05-12] MEDS ORDERED: proPOfol INJECTION 200 MG/20 ML VIAL IV ONE (10:27)
[2023-05-12] MEDS ORDERED: SEVOFLURANE (ULTANE) 15 ML INHAL SOLN ONE ×2 (10:27→12:14)
[2023-05-12] MEDS ORDERED: ONDANSETRON INJECTION 4 MG/2 ML (SDV) ONE (10:27)
[2023-05-12] MEDS ORDERED: LIDOCAINE PF 2% 5 ML VIAL ONE (10:27)
[2023-05-12] MEDS ORDERED: fentaNYL INJECTION 100 MCG/2 ML VIAL ONE (10:27)
[2023-05-12] MEDS ORDERED: MIDAZOLAM INJ 2 MG/2 ML VIAL ONE (10:27)
[2023-05-12] MEDS ORDERED: ROCURONIUM 50 MG/5 ML VIAL IV ONE (10:28)
[2023-05-12] MEDS ORDERED: CLINDAMYCIN 600 MG/50 ML IVPB 50 ML IV ONE ×2 (10:28→10:30)
--- NOTE | 2023-05-12 10:57 | Progress Note-Pre Operative ---
Pre-Operative Progress Note Date of Available H&P: May 12, 2023 Date H&P Reviewed: May 12, 2023 Time H&P Reviewed: 10:30 History & Physical: H&P Reviewed, Patient Examed, No changes noted Pre-Operative Diagnosis: Incisional hernia DIMITRIOS ALTAMIRANO APRN May 12, 2023 10:57
[2023-05-12] MEDS ORDERED: HYDR-3817 PO (10:59)
--- NOTE | 2023-05-12 10:59 | Discharge Inst-Surgical ---
D/C Lap Instructions-KIDO Reconcile Patient Problems Problems Reviewed?: Yes New, Converted, or Re-Newed RX: RX on Chart Follow Up Appt in 2 weeks Activity as tolerated No driving for 24 hours No driving while on pain medications Incentive Spirometry use every 2 hours while awake Regular Diet Symptoms to Report: Fever over 101 degree F, Nausea/Vomiting Infection Signs and Symptoms to report: Increased redness, Foul odor of wound, Increased drainage Bathing instructions: May shower Operative Area Clean/Dry; Keep incision clean/dry If any problems/questions: Contact your physician or go to Emergency Room DIMITRIOS ALTAMIRANO APRN May 12, 2023 10:59
[2023-05-12] MEDS ORDERED: ONDANSETRON INJECTION 4 MG/2 ML (SDV) IVP PRN ×2 (11:00→12:45)
[2023-05-12] MEDS ORDERED: morphine INJ 10 MG/ML 1ML (SYR OR VIAL) IVP PRN (11:00)
[2023-05-12] MEDS ORDERED: HYDROcodone/ACETAMINOPHEN 5 MG/325 MG TABLET PO ONE (11:00)
[2023-05-12] MEDS ORDERED: ACETAMINOPHEN 325 MG TABLET PO PRN (11:00)
[2023-05-12] MEDS ORDERED: LIDOCAINE 1% w/EPI 1:100,000 20 ML VIAL INJ ONE (11:41)
[2023-05-12] MEDS ORDERED: dexAMETHasone INJ 10 MG/ML 1 ML VIAL ONE (11:51)
[2023-05-12] MEDS ORDERED: GLYCOPYRROLATE INJ 0.2 MG/ML 2 ML VIAL ONE (12:07)
[2023-05-12] MEDS ORDERED: NEOSTIGMINE 1 MG/1ML 10 ML VIAL ONE (12:07)
[2023-05-12] MEDS ORDERED: PHENYLEPHRINE 100 MCG/ML 10 ML (ANESTHESIA) SYR ONE (12:15)
[2023-05-12] MEDS ORDERED: HYDROmorphone INJECTION 2 MG/ML VIAL IV ONE (12:45)
[2023-05-12] MEDS ORDERED: morphine INJ 10 MG/ML 1ML (SYR OR VIAL) IVP ONE (12:45)
--- NOTE | 2023-05-12 12:52 | Progress Note-Post Operative ---
Post-Operative Progess Note Surgeon (s)/Lead Application Architect (s) Surgeon DEONNA CHERY MD Lead Application Architect: eligio flores [employer] Pre-Operative Diagnosis Incisional hernia Post-Operative Diagnosis same Procedure & Operative Findings Date of Procedure 05/12/23 Procedure Performed/Findings ventral abd inc hernia with mesh(3x2cm) Anesthesia Type get Estimated Blood Loss Estimated blood loss (mL): minimal Specimens/Packing Specimens Removed none DEONNA CHERY MD May 12, 2023 12:52
[2023-05-12] MEDS ORDERED: HYDROcodone/ACETAMINOPHEN 5 MG/325 MG TABLET ONE (13:41)
--- NOTE | 2023-05-12 13:58 | Anesthesia-General Post-Op ---
General Patient Condition Mental Status/LOC: Same as Preop Cardiovascular: Satisfactory Nausea/Vomiting: Absent Respiratory: Satisfactory Pain: Controlled Complications: Absent Post Op Complications Complications None Follow Up Care/Instructions Patient Instructions None needed. Anesthesia/Patient Condition Patient Condition Patient is doing well, no complaints, stable vital signs, no apparent adverse anesthesia problems. No complications reported per nursing. SUKHJINDER SANDOVAL DO May 12, 2023 13:57
--- NOTE | 2023-05-12 15:15 | OPERATIVE REPORT ---
DATE OF SERVICE: 05/12/2023 ATTENDING PRIMARY CARE PHYSICIAN: Dr. Richa Delcid. PREOPERATIVE DIAGNOSIS: Incarcerated ventral abdominal incisional hernia. POSTOPERATIVE DIAGNOSIS: Incarcerated ventral abdominal incisional hernia. PROCEDURE: Open incarcerated ventral abdominal incisional hernia repair with mesh. SURGEON: Deonna Chery MD [employer] TECHNICIAN: Lalit Johnson APRN ANESTHESIA: General endotracheal. ESTIMATED BLOOD LOSS: Minimal. FINDINGS: Fascial defect approximately 2 x 3 cm in size. DISPOSITION: The patient tolerated the procedure well. INDICATIONS: The patient is a 63-year-old male who presented to the [facility] Emergency Department on 02/11/2022 for abdominal pain, nausea, vomiting. A CT scan was performed, which did show gallbladder wall thickening as well as stones and on 02/12/2022, he underwent a laparoscopic cholecystectomy. During the laparoscopy portion, a significant amount of inflammation along the mesenteric and omental fat creeping were identified. The patient has also had issues with abdominal wall abscess requiring incision and drainage. Due to his Crohn's disease, he also developed a fistula, which did eventually heal with conservative therapy. Along the midline laparotomy incision, the patient does have an incarcerated hernia, which is painful to palpation. He is otherwise eating well and having normal bowel movements. The patient also did have a total colectomy and an end ileostomy in the past for fulminant Crohn's colitis. DESCRIPTION OF PROCEDURE: The patient was brought to the operating room, laid supine on the table. After adequate IV pain and sedative medications and general endotracheal intubation, the abdomen was prepped and draped in standard surgical fashion. A 0.5% Marcaine with epinephrine was used to anesthetize the overlying skin in the left upper abdominal quadrant and a transverse skin incision made using a #15 blade. The hernia sac identified and completely dissected out using Metzenbaum scissors as well as electrocautery. The intact fascia was identified and the defect approximately 3 x 2 cm in size. We then opened the hernia sac using Metzenbaum scissors. There was omentum and small bowel within the hernia sac. We then proceeded with gentle meticulous blunt dissection to tease the omentum and small bowel off of the hernia sac and the hernia sac was then fully excised using electrocautery. The adhesions towards the abdominal wall were then taken down with Metzenbaum scissors as well as light blunt dissection with visualization of good hemostasis. An 8 cm coated polypropylene mesh was then placed into the defect and sutured transfascially in a concentric manner to the mesh using 0 Prolene sutures with visualization of good hemostasis. The subcutaneous tissue was then reapproximated using 3-0 Vicryl suture and the skin was closed using 4-0 Monocryl running subcuticular suture. The area was then covered with tonsil sponges followed by 4 x 4 gauze followed by a large Op-Site. The patient tolerated the procedure well. We will start IV normal pain medication as well as a clear liquid diet. Once tolerating clears, has good pain control with oral pain medications, ambulating well, we will discharge him home where he will be instructed to do no heavy lifting or exertion for the next 6 weeks. Job ID: [id number] DocumentID: [id number] Dictated Date: 05/12/2023 12:12:22 [employer] Developer Date: 05/12/2023 15:13:00 Dictated By: DEONNA CHERY MD MTDD
== END 2023-05-12 14:45 ==
LOC: SDC 09:40
PROVIDERS: ATTEND Surgery
DX: K43.0 Incisional hernia with obstruction, without gangrene (principal); K50.013 Crohn's disease of small intestine with fistula; K66.0 Peritoneal adhesions (postprocedural) (postinfection); E66.9 Obesity, unspecified; Z68.30 Body mass index [BMI] 30.0-30.9, adult; Z79.899 Other long term (current) drug therapy
CPT/HCPCS: 49594; 87081; C1781